=== PATIENT | male | born 1965 | race Caucasian/White ===

== ENCOUNTER 2016-11-08 10:52 | Inpatient (IN) | payer BC, OTHER ==
[~2016-11-08] VITALS: Ht 182.9 cm; Wt 81.6 kg
[2016-11-08] MEDS ORDERED: LOPERAMIDE HCL 2 MG CAPSULE PO PRN ×2 (14:30)
[2016-11-08] MEDS ORDERED: MIRALAX 17 GM POWD.PACK PO PRN (14:30)
[2016-11-08] MEDS ORDERED: MAGNESIUM HYDROXIDE 30 ML LIQUID UDC PO PRN (14:30)
[2016-11-08] MEDS ORDERED: MAG HYDROX/AL HYDROX/SIMETH 30 ML LIQUID UDC PO PRN (14:30)
[2016-11-08] MEDS ORDERED: LORAZEPAM 2 MG/1 ML VIAL IM PRN (14:30)
[2016-11-08] MEDS ORDERED: THIAMINE HCL 200 MG/2 ML VIAL IM ONE ×2 (14:30→17:45)
[2016-11-08] MEDS ORDERED: LORAZEPAM 1 MG TABLET PO PRN ×2 (14:30)
[2016-11-08] MEDS ORDERED: PANTOPRAZOLE SODIUM 40 MG VIAL IV SCH (14:30)
[2016-11-08] MEDS ORDERED: ONDANSETRON 4 MG/2 ML VIAL IV PRN (14:30)
[2016-11-08] MEDS ORDERED: OMEP20TA20 PO (15:00)
--- NOTE | 2016-11-08 15:00 | NUR ---
PRE-ASSESSMENT: PRE-ASSESSMENT DONE IN INTAKE BP 121/90 P 101 T 98.1 R 17 100%. HE DENIES ALLERGIES. HE DENIES SEIZURES. HE STATES HE IS HERE FOR ETOH. NO MEDICATIONS BROUGHT WITH HIM. HE REPORTS HE TAKES PRILOSEC 20 MG QDAY. HE IS A/O X 4. HE IS AMBULATORY.
[2016-11-08 15:07] VITALS: BP 121/90
--- NOTE | 2016-11-08 15:45 | NUR ---
ADMISSION NOTE VS: BP: 121/90 HR: 101 T: 98.1 RR: 17 O2SAT: 100% HEIGHT 6 FOOT WEIGHT 180 LBS ALLERGIES: NKHoda Pt is a 51 year old male admitted to [facility] on 11/08/16 at 1500. Pt is under the care of Dr. Plata for ETOH AND benzo dependence. Pt denies suicidal and homicidal ideations at this time. Patient states he was in a hospital for a 5150 13 days ago. MRSA swab collected and sent to lab. Pt denies chest pain or SOB. Upon assessment, pt skin is intact. CIWA 14 upon admission. NKA. AOx4 and able to answer necessary questions for admission process. Pt is full code. VS WNL. Regular diet. Pt denies having seizures. Pt denies PCP. Breathing is even and unlabored. Oxygen is 100% on room air. Pt ambulates with steady gait. Pt states bowel habits are normal. Pt reports treatment hx in [facility] and [facility]. Pt reports living at home alone. Pt denies past medical hx. Pt refuses PNA vaccine. Patient states he smokes only when he drinks etoh. Dr Plata assessed patient. All needs have been met. pt has been oriented to room, unit, and staff. All safety measures in place per hospital policy. Will continue to monitor. Substance abuse: ETOH: "1 gallon" per day for 13 days. Last use 11/08/16 "about 1/2 pint" Xanax: "0.5 mg" per day for 13 days. Last used 11/08/16 "0/5 mg"
[2016-11-08] MEDS: HYDROXYZINE PAMOATE 25 MG CAPSULE PO PRN (16:36)
--- NOTE | 2016-11-08 16:36 | NUR ---
PRN MEDS PRN vistaril given for c/o anxiety. ciwa 14. pt restless and anxious. will reassess
[2016-11-08 16:40] LABS: BASOPHILS % (AUTO) 0.8 % (0.0-2.0); EOSINOPHILS # (AUTO) 0.2 K/uL (0.0-0.7); EOSINOPHILS % (AUTO) 4.6 % (0.0-7.0); HEMATOCRIT 42.5 % (36.7-47.1); HEMOGLOBIN 14.6 g/dL (12.5-16.3); LYMPHOCYTES # (AUTO) 1.7 K/uL (20.0-40.0); LYMPHOCYTES % (AUTO) 40.4 % (20.5-51.5); MEAN CORPUSCULAR HGB CONC 34 g/dL (32.5-36.3); MEAN CORPUSCULAR VOLUME 87.3 fL (73.0-96.2); MONOCYTES # (AUTO) 0.3 K/uL (2.0-10.0); MONOCYTES % (AUTO) 7.8 % (0.0-11.0); NEUTROPHILS # (AUTO) 1.9 K/uL (1.8-8.9); NEUTROPHILS % (AUTO) 46.4 % (38.5-71.5); PLATELET COUNT (AUTO) 289 K/uL (152-348); RED BLOOD CELL COUNT(AUTO) 4.86 MIL/uL (4.06-5.63); RED CELL DISTRIBUTION WIDTH 13.9 % (12.1-16.2); WHITE BLOOD COUNT (AUTO) 4.1 K/uL (3.6-10.2)
[2016-11-08 17:04] LABS: ALBUMIN 3.8 g/dL (3.4-5.0); BILIRUBIN,TOTAL 0.3 mg/dL (0.2-1.0); CALCIUM 8.1 mg/dL (8.5-10.1); MAGNESIUM 1.8 mg/dL (1.8-2.4); POTASSIUM 3.4 mmol/L (3.5-5.1); TOTAL PROTEIN, SERUM 7.2 g/dL (6.4-8.2)
[2016-11-08 17:05] LABS: THYROID STIMULATING HORMONE 2.008 mIU/mL (0.358-3.740)
[2016-11-08 17:15] LABS: *AMPHETAMINE, URINE NEGATIVE (NEGATIVE); *BARBITURATE, URINE NEGATIVE (NEGATIVE); *CANNABINOID, URINE NEGATIVE (NEGATIVE); *COCCAINE, URINE POSITIVE (NEGATIVE); *OPIATE, URINE NEGATIVE (NEGATIVE); *PHENCYCLIDINE SCREEN,URINE NEGATIVE (NEGATIVE)
--- NOTE | 2016-11-08 17:19 | NUR ---
PRN REASSESSMENT Pt appears less anxious. reports he is feeling a little better. Will continue to monitor
[2016-11-08 17:20] LABS: HIV-1 p24 ANTIGEN NON REACTIVE (NONREACTIVE); HIV-1/2 ANTIBODY NON REACTIVE (NONREACTIVE)
[2016-11-08] MEDS ORDERED: POTASSIUM CHLORIDE 10 MEQ CAPSULE.SA PO ONE (18:00)
[2016-11-08] MEDS: IV NS 1000 ML 1,000 ML IV PRN (18:45)
--- NOTE | 2016-11-08 18:55 | NUR ---
END OF SHIFT Admitted pt this afternoon. Pt admitted for ETOH and Benzo dependence. Pt denies S/I and H/I. Pt denies hx of seizures. Pt given PRN Vistaril for anxiety. Pt has right AC 22 g with NS infusing at 125ml/hr. Pt currently sleeping in bed with RR even and unlabored. Bed locked and in lowest position. Will endorse to night nurse.
[2016-11-08 20:00] VITALS: BP 150/100
--- NOTE | 2016-11-08 20:00 | NUR ---
START OF SHIFT NOTE RECEIVED REPORT BY DAY SHIFT NURSE. PATIENT IS A 51 YEAR OLD MALE, NEWLY ADMITTED FOR ETOH DEPENDENCE. PATIENT WAS PLACED ON 5 DAY ATIVAN TAPER TO BE STARTED TOMORROW. PATIENT IS FULL CODE, REGULAR DIET AND NO KNOWN ALLERGY. PATIENT HAS NO PAST MEDICAL HISTORY. PATIENT DRINKS "1 GALLON" DAILY FOR 13 DAYS AND XANAX PO "0.5 MG " FOR 13 DAYS. ON FALL/SEIZURE PRECAUTION. SKIN INTACT.PATIENT IS ON IV NS @125 ML/HR ON RIGHT AC 22 G. POTASSIUM WAS REPLACED. PATIENT WAS GIVEN PRN VISTARIL GIVEN. LAST CIWA 14. RECEIVED PATIENT IN ROOM. IV INFUSING , NO INFILTRATE. PATIENT REPORTS SWEATING, FLUSHED, ABDOMINAL CRAMPING, ANXIETY AND HEADACHE 02/18. PATIENT STATES HE WATS TO GO SMOKE FIRST AND WANTS TO HAVE SLEEP AID. SAFETY MEASURES IN PLACE. CALL LIGHT IN REACH. WILL CONTINUE TO MONITOR.
[2016-11-08] MEDS: diphenhydrAMINE 50 MG CAPSULE PO PRN (20:38)
--- NOTE | 2016-11-08 20:38 | NUR ---
PRN ATIVAN AND BENADRYL ADMINISTRATION PATIENT ANXIOUS, RESTLESS, AGITATED, UNABLE TO SLEEP. CIWA 16 . PRN ATIVAN AND BENADRYL GIVEN. WILL MONITOR FOR EFFECTIVENESS
--- NOTE | 2016-11-08 21:38 | NUR ---
PRN ATIVAN RE-ASSESSMENT PATIENT IN BED, CALM . PATIENT STATES ATIVAN IS HELPFUL.HE STATES HIS ANXIETY SUBSIDED, CIWA IA NOW 5. WILL CONTINUE TO MONITOR.
--- NOTE | 2016-11-08 22:00 | NUR ---
PRN BENADRYL RE-ASSESSMENT PATIENT IN BED ASLEEP. RESPIRATION EVEN AND UNLABORED. NO S/S OF DISTRESS. IV SODIUM CHLORIDE 0.9 % INFUSING AT 125 MLS/HR ON RIGHT AC, NO S/S OF INFILTRATE. SAFETY MEASURES IN PLACE. CALL LIGHT IN REACH. WILL CONTINUE TO MONITOR
[2016-11-09] VITALS: BP 132/88
[2016-11-09] MEDS: IV NS 1000 ML 1,000 ML IV PRN (03:55)
[2016-11-09 04:00] VITALS: BP 148/89
[2016-11-09] MEDS: PANTOPRAZOLE SODIUM 40 MG TABLET.DR PO SCH (06:24)
--- NOTE | 2016-11-09 07:20 | NUR ---
END OF SHIFT NOTE MONITORED PATIENT THROUGHOUT THE NIGHT. PATIENT ON IV SODIUM CHLORIDE 0.9% AT 125 MLS/HR ON RIGHT AC, 22G. INFUSING , NO INFILTRATE. PATIENT REPORTED SWEATING, FLUSHED, ABDOMINAL CRAMPING, ANXIETY AND HEADACHE 8/10 DURING SHIFT. PATIENT WAS GIVEN PRN ATIVAN AT 2038 FOR CIWA 16 , EFFECTIVE CIWA DOWN NO 5 AND BENADRYL FOR SLEEP AT 2038 , EFFECTIVE. PATIENT COMPLIANT WITH MEDICATIONS. ENCOURAGE FLUIDS. SAFETY MEASURES IN PLACE. CALL LIGHT IN REACH. WILL CONTINUE TO MONITOR. SLEPT 9 HOURS. FLUID INTAKE 1,150 ML. VOIDED X 1 . NO BM. LAST CIWA 2.
--- NOTE | 2016-11-09 07:54 | NUR ---
START OF SHIFT NOTE Received pt this am AOx4. Pt states he is very anxious, shakey, dizzy, and congested. PRN Ativan and Benadryl was administered with effectiveness per night nurse. Last CIWA 2 per night nurse. Pt slept 9 hours. Pt has right AC 22 gauge IV with NS running @ 125 ml/hr. Encouraged increase in fluids to facilitate his detox. Will provide safe and supportive environment. Will continue to monitor.
[2016-11-09 08:00] VITALS: BP 150/94
[2016-11-09] MEDS: THIAMINE HCL 100 MG TABLET PO SCH (08:17)
[2016-11-09] MEDS: LORAZEPAM 1 MG TABLET PO SCH ×4 (08:17→20:40)
[2016-11-09] MEDS: FOLIC ACID 1 MG TABLET PO SCH (08:17)
[2016-11-09] MEDS: MULTIVITAMINS,THERAPEUTIC TABLET PO SCH (08:17)
[2016-11-09 08:31] LABS: ALBUMIN 3.2 g/dL (3.4-5.0); BILIRUBIN,DIRECT 0.1 mg/dL (0.0-0.2); BILIRUBIN,TOTAL 0.4 mg/dL (0.2-1.0); CALCIUM 8.5 mg/dL (8.5-10.1); CREATININE 1.1 mg/dL (0.6-1.3); MAGNESIUM 1.6 mg/dL (1.8-2.4); PHOSPHOROUS 3.4 mg/dL (2.5-4.9); POTASSIUM 4.1 mmol/L (3.5-5.1); TOTAL PROTEIN, SERUM 6.3 g/dL (6.4-8.2)
[2016-11-09] MEDS ORDERED: TUBERCULIN,PURIF.PROT.DERIV. 5 TU/0.1 ML TEST ID ONE (09:00)
[2016-11-09] MEDS ORDERED: MAGNESIUM OXIDE 400 MG TABLET PO ONE (10:00)
[2016-11-09] MEDS ORDERED: LORAZEPAM 1 MG TABLET PO ONE (11:00)
[2016-11-09 12:00] VITALS: BP 147/98
[2016-11-09] MEDS: IV D5 1/2 NS 1000 ML 1,000 ML IV SCH ×2 (15:36→23:24)
[2016-11-09 16:00] VITALS: BP 161/80
--- NOTE | 2016-11-09 18:36 | NUR ---
END OF SHIFT NOTE Pt on 5 day Ativan taper and tolerating well. No PRNs needed during shift. One time order of Ativan ordered around 1100 for anxiety and tremors. Last CIWA 6. Pt stayed in room all shift and tried to sleep most of the day. Pt has right AC 22 g with D 5 1/2 NS infusing @ 125 ml/hr. Pt tolerating food and liquids well. Pt currently sleeping in bed with RR even and unlabored. Bed locked and in lowest position and call dey within reach. Will pass report to night nurse.
[2016-11-09 20:00] VITALS: BP 154/95
--- NOTE | 2016-11-09 20:00 | NUR ---
START OF SHIFT NOTE RECEIVED PATIENT IN ROOM. RESTING. PATIENT ALERT AND ORIENTED X 3. PATIENT IS ON IV D51/2 NS @125ML/HR AT RIGHT AC 22G. SKIN INTACT. NO INFILTRATE. PATIENT REPORTS SWEATING, NOTED TREMORS, NO N/V, SLIGHT ABDOMINAL CRAMPING, RESTLESS LEGS AND GENERALIZED BODY ACHE 5/10. PATIENT ON 1ST DAY OF HIS 5 DAY ATIVAN TAPER FOR ETOH DEPENDENCE, TOLERATED WELL, NO ADVERSE EFFECT . ON FALL/SEIZURE PRECAUTION. PATIENT DID NOT RECEIVE ANY PRN MEDICATION DURING THE DAY. LAST CIWA 6 . SAFETY MEASURES IN PLACE. CALL LIGHT IN REACH. WILL CONTINUE TO MONITOR.
[2016-11-09] MEDS: diphenhydrAMINE 50 MG CAPSULE PO PRN (20:40)
[2016-11-09] MEDS: IBUPROFEN 400 MG TABLET PO PRN (20:41)
--- NOTE | 2016-11-09 20:41 | NUR ---
PRN BENADRYL/MOTRIN ADMINISTRATION PATIENT REPORTS GENERALIZED BODY ACHES 5/10 AND REQUESTS FOR SLEEP AID. PRN BENADRYL AND MOTRIN GIVEN. WILL MONITOR FOR EFFECTIVENESS
--- NOTE | 2016-11-09 21:41 | NUR ---
PRN MOTRIN/BENADRYL RE-ASSESSMENT PATIENT IN BED, ASLEEP. RESPIRATION EVEN AND UNLABORED. NO S/S OF DISTRESS. SAFETY MEASURES IN PLACE. CALL LIGHT IN REACH. WILL CONTINUE TO MONITOR. WILL CONTINUE TO MONITOR.
[2016-11-10] VITALS (8 sets, daily range): BP systolic 141–182; BP diastolic 88–117
[2016-11-10] MEDS: CLONIDINE HCL 0.1 MG TABLET PO PRN ×3 (03:49→22:51)
--- NOTE | 2016-11-10 03:49 | NUR ---
PRN CLONIDINE ADMINISTRATION PATIENT'S BLOOD PRESSURE 148/102 , C/O SWEATING AND CHILLS. PRN CLONIDINE GIVEN. WILL MONITOR FOR EFFECTIVENESS
--- NOTE | 2016-11-10 04:49 | NUR ---
PRN CLONIDINE RE-ASSESSMENT PATIENT 'S BLOOD PRESSURE RECHECK. 141/94. PATIENT STATES CLONIDINE IS HELPFUL . CHILLS SUBSIDED. WILL CONTINUE TO MONITOR.
[2016-11-10] MEDS: PANTOPRAZOLE SODIUM 40 MG TABLET.DR PO SCH (06:20)
[2016-11-10] MEDS: IV D5 1/2 NS 1000 ML 1,000 ML IV SCH (06:30)
--- NOTE | 2016-11-10 07:13 | NUR ---
END OF SHIFT NOTE MONITORED PATIENT THROUGHOUT THE SHIFT. PATIENT ALERT AND ORIENTED X 3. PATIENT IS ON IV D51/2 NS @125ML/HR AT RIGHT AC 22G. SKIN INTACT. NO INFILTRATE. PATIENT REPORTED SWEATING, NOTED TREMORS, NO N/V, SLIGHT ABDOMINAL CRAMPING, RESTLESS LEGS AND GENERALIZED BODY ACHE 5/10 DURING SHIFT. PATIENT ON 1ST DAY OF HIS 5 DAY ATIVAN TAPER FOR ETOH DEPENDENCE, TOLERATED WELL, NO ADVERSE EFFECT . ON FALL/SEIZURE PRECAUTION. PATIENT WAS GIVEN BENADRYL AND MOTRIN AT 2040, EFFECTIVE. PATIENT C/O CHILLS AND SWEATING AT 0349, BP 148/102 , PRN CLONIDINE WAS GIVEN AND EFFECTIVE BP-141/94 . SAFETY MEASURES IN PLACE. CALL LIGHT IN REACH. WILL CONTINUE TO MONITOR. SLEPT 7 HOURS. FLUID INTAKE 1,520 ML. VOIDED X 1. BM X 1 .LAST CIWA 3
--- NOTE | 2016-11-10 08:05 | NUR ---
START OF SHIFT: RECEIVED PT A/O X 4. GROSS TREMORS NOTED TO HANDS. HE REPORTS DIZZINESS AND STATES HE FEELS WEAK. HE REPORTS ANXIETY ,RESTLESSNESS, NAUSEA AND SWEATS. INSTRUCTED PT TO DANGLE LEGS AND SIT ON EDGE OF BED FOR A COUPLE OF MINUTES BEFORE GETTING OUT OF BED. HE REPORTS HE HAS BEEN DRINKING FLUIDS AND EATING 50 % OF MEALS. IV TO R AC WITH NO REDNESS OR SWELLING NOTED. D 5 07/12 NS @125 ML/HR IS EMPTY.DISCONTINUED IV PE . ENCOURAGED INCREASED FLUIDS PO. ATIVAN TAPER IN PROGRESS TO MANAGE S/S OF W/D. CIWA 13. PRN ZOFRAN SL GIVEN FOR NAUSEA.HE DENIES HALLUCINATIONS.PT IS ON BEDREST TODAY. WILL MONITOR FLUID AND FOOD INTAKE. WILL CONTINUE TO PROVIDE SAFE AND SUPPORTIVE ENVIRONMENT.
[2016-11-10] MEDS: FOLIC ACID 1 MG TABLET PO SCH (08:09)
[2016-11-10] MEDS: THIAMINE HCL 100 MG TABLET PO SCH (08:14)
[2016-11-10] MEDS: ONDANSETRON ODT 4 MG TAB.RAPDIS SL PRN ×3 (08:14→22:51)
[2016-11-10] MEDS: MULTIVITAMINS,THERAPEUTIC TABLET PO SCH (08:14)
--- NOTE | 2016-11-10 08:40 | NUR ---
PRN ZOFRAN EFFECTIVE. PT DENIES NAUSEA.
[2016-11-10] MEDS ORDERED: LORAZEPAM 1 MG TABLET PO SCH (09:00)
[2016-11-10] MEDS ORDERED: LORAZEPAM 1 MG TABLET PO ONE (11:00)
--- NOTE | 2016-11-10 11:03 | NUR ---
A ONE TIME DOSE OF ATIVAN 2MG PO GIVEN FOR SEVERE S/S OF W/D PER MD WHICH INCLUDE SEVERE TREMORS, SEVERE ANXIETY AND PT STATES " I FEEL LIKE I AM CRAWLING OUT OF MY SKIN" MELVIN 12 AT 11OO. WILL MONITOR EFFECTIVENESS OF PRN.
--- NOTE | 2016-11-10 11:33 | NUR ---
ONE TIME ATIVAN WAS EFFECTIVE PT'S CIWA 10 AT 1130. WILL CONTINUE TO MONITOR.
[2016-11-10] MEDS ORDERED: LORAZEPAM 1 MG TABLET PO PRN (12:15)
--- NOTE | 2016-11-10 12:25 | NUR ---
ATIVAN TAPER MODIFIED PER MD TO PREVENT SEIZURES FROM W/D. BP ELEVATED AT 182/117 P 78. CLONIDINE PRN GIVEN. WILL MONITOR EFFECTIVENESS.
[2016-11-10] MEDS: LORAZEPAM 1 MG TABLET PO SCH ×3 (12:27→21:00)
--- NOTE | 2016-11-10 13:05 | NUR ---
CLONIDINE WAS EFFECTIVE. BP 148/97 P 62
[2016-11-10] MEDS ORDERED: hydrALAZINE HCL 25 MG TABLET PO PRN (14:30)
[2016-11-10 15:09] LABS: HCV AB <0.1 s/co ratio (0.0-0.9); HEPATITIS B CORE AB, IgM Negative (Negative); HEPATITIS B SURFACE AG Negative (Negative)
--- NOTE | 2016-11-10 15:10 | NUR ---
Therapist encouraged client to attend groups.
[2016-11-10] MEDS: GABAPENTIN 300 MG CAPSULE PO SCH ×2 (15:34→21:00)
[2016-11-10] MEDS: LORAZEPAM 1 MG TABLET PO PRN (15:39)
--- NOTE | 2016-11-10 15:40 | NUR ---
PRN ATIVAN 2 MG PO GIVEN FOR CIWA 19 AT 1535 . S/S OF W/D INCLUDE SWEATS,GROSS TREMORS, SEVERE ANXIETY,ITCHING AND SENSITIVITY TO SOUND AND LIGHT. WILL MONITOR EFFECTIVENESS OF PRN MED IN 30 MINUTES. Addendum: 11/10/16 at 1554 by LIV PAGE RN MADE AWARE.
--- NOTE | 2016-11-10 16:05 | NUR ---
PRN ATIVAN WAS EFFECTIVE AEB CIWA 16.
--- NOTE | 2016-11-10 16:20 | NUR ---
PT C/O NAUSEA WITH NO VOMITING. ZOFRAN SL GIVEN. WILL MONITOR EFFECTIVENESS.
[2016-11-10] MEDS: DICYCLOMINE HCL 20 MG TABLET PO PRN (17:37)
--- NOTE | 2016-11-10 17:40 | NUR ---
PRN BENTYL GIVEN FOR REPORTED STOMACH CRAMPS. WILL MONITOR EFFECTIVENESS.
--- NOTE | 2016-11-10 18:10 | NUR ---
PT STATES BENTYL WAS EFFECTIVE AND STOMAC CRAMPS ARE GONE.
--- NOTE | 2016-11-10 19:04 | NUR ---
END OF SHIFT: PT CONTINUES ON ATIVAN TAPER AND PRN ATIVAN IS AVAILABLE WITH CIWA PARAMETERS. HIS LAST CIWA 16. PRN ATIVAN GIVEN X 2 WITH A ONE TIME DOSE WELL AND MILDLY EFFECTIVE. CLONIDINE PRN GIVEN FOR ELEVATED BP AND EFFECTIVE. ZOFRAN SL GIVEN PRN X 2 AND EFFECTIVE. BENTYL GIVEN FOR STOMACH CRAMPS AND EFFECTIVE. SALINE LOCK IN PLACE TO R AC NO REDNESS OR SWELLING NOTED. PT WAS EXTREMELY TREMULOUS,SWEATING AND C/O ANXIETY AND NAUSEA EARLIER. NEW ORDER TO EXTEND PRN ATIVAN PER MD TO PREVENT SEIZURES AND DTS. PT IS EATING 50% OF MEALS AND CONSUMED APPROXIMATELY 4,446 ML OF WATER AND POWER LANCE. HE WAS INSTRUCTED TO DANGLE FEET AT EDGE OF BED BEFORE GETTING OUT OF BED AND USING A W/C TO MOVE ABOUT UNIT. BED REST SUGGESTED. WILL PASS SHIFT REPORT TO ONCOMING NIGHT NURSE.
--- NOTE | 2016-11-10 19:15 | NUR ---
START OF SHIFT Received 51 year old male patient admitted on 11/08/16 for ETOH dependency. Pt is full code with NKA. He denies any PMHx. He reports using ETOH "1 gallon" for 13 days. Last dose was 1/2 pint on 11/08/16. Xanax PO 0.5 mg daily for 13 days. Last dose was 0.5 mg on 11/08/16. He is placed on a 5 day Ativan taper and tolerating well. Pt with 22 gauge saline lock on right AC. Patent and flushing well. Per endorsement pt received one time Ativan and Zofran x2. Pt is alert and oriented x4, breathing is even and unlabored. Pt safe with bed locked in lowest position, side rails up x2 and call light within reach. Will continue to monitor.
[2016-11-10] MEDS: diphenhydrAMINE 50 MG CAPSULE PO PRN (21:00)
--- NOTE | 2016-11-10 21:00 | NUR ---
PRN BENADRYL Pt complains of inability to fall asleep. PRN Benadryl administered as ordered. Breathing is even and unlabored. Safety measures in place. Will monitor effectiveness of medication.
--- NOTE | 2016-11-10 22:00 | NUR ---
PRN BENADRYL REASSESSMENT PRN Benadryl ineffective. Pt still awake and unable to sleep. Breathing even and unlabored, safety measures in place. Will continue to monitor.
[2016-11-10] MEDS: HYDROXYZINE PAMOATE 25 MG CAPSULE PO PRN (22:51)
--- NOTE | 2016-11-10 22:51 | NUR ---
PRN ZOFRAN, CLONIDINE, and VISTARIL Pt observed with chills/sweats, anxiety, agitation and nausea. PRN Zofran, Clonidine and Vistaril administered as ordered. Breathing is even and unlabored, safety measures in place. Will monitor effectiveness of medications.
--- NOTE | 2016-11-10 23:51 | NUR ---
PRN ZOFRAN/CLONIDINE and VISTARIL REASSESSMENT PRN medications effective. Pt lying in bed with eyes closed and is asleep. Respirations 16, breathing is even and unlabored. No s/s of facial grimacing noted. Safety measures in place. Will continue to monitor.
[2016-11-11] VITALS (8 sets, daily range): BP systolic 138–163; BP diastolic 87–109
--- NOTE | 2016-11-11 | NUR ---
CIWA DEFERRED CIWA deferred d/t order is Q4H while awake. Pt lying in bed with eyes closed noted to be asleep. Respirations 16, breathing is even and unlabored. Safety measures in place. Will monitor.
[2016-11-11] MEDS: PANTOPRAZOLE SODIUM 40 MG TABLET.DR PO SCH (06:22)
[2016-11-11] MEDS: IBUPROFEN 400 MG TABLET PO PRN (06:22)
[2016-11-11] MEDS: HYDROXYZINE PAMOATE 25 MG CAPSULE PO PRN (06:22)
--- NOTE | 2016-11-11 06:32 | NUR ---
PRN MOTRIN/VISTARIL Pt complains of headache 6/10 and anxiety. PRN Motrin and Vistaril administered as ordered. Will endorse to oncoming shift to monitor effectiveness of medications.
--- NOTE | 2016-11-11 07:17 | NUR ---
END OF SHIFT Pt is a 51 year old male patient admitted on 11/08/16 for ETOH dependency. Pt is full code with NKA. He denies any PMHx. He continues on a 5 day Ativan taper and is tolerating well. Pt with 22 gauge saline lock on right AC. Patent and flushing well. At 2100 he received PRN Benadryl, medication was not effective. At 2251 he received PRN Vistaril, Jose Luis and Clonidine. PRN medications were effective. At 0630 he received PRN Vistaril and Motrin d/t complaints of headache and anxiety. Will endorse to oncoming nurse to monitor effectiveness. He slept a total of 5 hrs, Intake ,1000mL, Void: x5, BM:0. CIWA:9. Pt is alert and oriented x4, breathing is even and unlabored. Pt safe with bed locked in lowest position, side rails up x2 and call light within reach. Endorsed to oncoming nurse.
[2016-11-11 07:51] LABS: BASOPHILS % (AUTO) 0.4 % (0.0-2.0); EOSINOPHILS # (AUTO) 0.2 K/uL (0.0-0.7); EOSINOPHILS % (AUTO) 4.8 % (0.0-7.0); HEMATOCRIT 37.3 % (36.7-47.1); HEMOGLOBIN 12.7 g/dL (12.5-16.3); LYMPHOCYTES # (AUTO) 0.9 K/uL (20.0-40.0); LYMPHOCYTES % (AUTO) 19.2 % (20.5-51.5); MEAN CORPUSCULAR HEMOGLOBIN 29.5 uug (23.8-33.4); MEAN CORPUSCULAR HGB CONC 34 g/dL (32.5-36.3); MEAN CORPUSCULAR VOLUME 86.9 fL (73.0-96.2); MONOCYTES # (AUTO) 0.3 K/uL (2.0-10.0); MONOCYTES % (AUTO) 5.6 % (0.0-11.0); NEUTROPHILS # (AUTO) 3.3 K/uL (1.8-8.9); PLATELET COUNT (AUTO) 217 K/uL (152-348); RED CELL DISTRIBUTION WIDTH 14.6 % (12.1-16.2); WHITE BLOOD COUNT (AUTO) 4.7 K/uL (3.6-10.2)
--- NOTE | 2016-11-11 08:15 | NUR ---
START OF SHIFT: RECEIVED PT A/O X 3 LAYING IN BED IN SEMI FOWLERS. HE REPORTS HE COULDN'T SLEEP LAST NIGHT AND HAD A VERY RESTLESS NIGHT WITH SWEATS,ANXIETY AND RESTLESSNESS. HE IS TREMULOUS BUT HIS AFFECT IS BRIGHTER AND HE IS LESS FLUSHED THEN YESTERDAY. ATIVAN TAPER IN PROGRESS. CIWA 11. HE REPORTS ANXIETY AND FEELS HOT AND COLD. HE STATES HE SHOWERED AND PUT ON CLEAN CLOTHES AT 0230 MEDICATED ORDERED . PT IS COMPLIANT WITH INCREASED FLUIDS. HIS GAIT IS STEADY AND HE DENIES LIGHT HEADEDNESS OR DIZZINESS. WILL CONTINUE TO MONITOR AND PROVIDE SAFE AND SUPPORTIVE ENVIRONMENT.
[2016-11-11] MEDS: LORAZEPAM 1 MG TABLET PO SCH ×3 (08:28→20:20)
[2016-11-11] MEDS: FOLIC ACID 1 MG TABLET PO SCH (08:28)
[2016-11-11] MEDS: MULTIVITAMINS,THERAPEUTIC TABLET PO SCH (08:28)
[2016-11-11] MEDS: THIAMINE HCL 100 MG TABLET PO SCH (08:28)
[2016-11-11] MEDS: GABAPENTIN 300 MG CAPSULE PO SCH ×2 (08:28→15:01)
[2016-11-11] MEDS ORDERED: LORAZEPAM 1 MG TABLET PO SCH (09:00)
[2016-11-11 10:59] LABS: ALBUMIN 3.2 g/dL (3.4-5.0); BILIRUBIN,DIRECT 0.1 mg/dL (0.0-0.2); BILIRUBIN,TOTAL 0.5 mg/dL (0.2-1.0); CALCIUM 8.5 mg/dL (8.5-10.1); MAGNESIUM 1.7 mg/dL (1.8-2.4); PHOSPHOROUS 3.8 mg/dL (2.5-4.9); TOTAL PROTEIN, SERUM 6.3 g/dL (6.4-8.2)
[2016-11-11] MEDS: LORAZEPAM 1 MG TABLET PO PRN (11:24)
--- NOTE | 2016-11-11 11:25 | NUR ---
PRN ATIVAN 2 MG PO GIVEN FOR S/S OF W/D WHICH INCLUDE SEVERE,ANXIETY AND GROSS TREMORS AND SOME AGITATION. CIWA 17 WILL MONITOR EFFECTIVENESS OF MED.
[2016-11-11] MEDS: ACETAMINOPHEN 325 MG TABLET PO PRN (16:55)
[2016-11-11] MEDS: CLONIDINE HCL 0.1 MG TABLET PO PRN (16:56)
--- NOTE | 2016-11-11 16:59 | NUR ---
PRN TYLENOL,CLONIDINE AND VISTARIL ADMINISTERED FOR BP163/109 P 94, H/A5/10 ON PAIN SCALE AND ANXIETY. WILL MONITOR EFFECTIVENESS.
--- NOTE | 2016-11-11 17:35 | NUR ---
END OF SHIFT: PT REMAINS ON ATIVAN TAPER. LAST CIWA 8. HE CONTINUES TO BE TREMULOUS AND C/O ANXIETY INTERMITTENTLY. PT IS EATING 100% OF MEALS AND STATES HE HAS HIS APPETITE BACK. PRN ATIVAN GIVEN THIS AM FOR CIWA 17 AND EFFECTIVE AEB CIWA 11. HIS GAIT IS STEADY AND HE IS ATTENDING GROUPS AND ACTIVITIES. BP BECAME ELEVATED IN AFTERNOON AND HE C/O H/A AND ANXIETY. TYLENOL,CLONIDINE AND VISTARIL GIVEN AND EFFECTIVE. [facility]
--- NOTE | 2016-11-11 19:15 | NUR ---
START OF SHIFT Received 51 year old male patient admitted on 11/08/16 for ETOH dependency. Pt is full code with NKA. He denies any PMHx. He reports using ETOH "1 gallon" for 13 days. Last dose was 1/2 pint on 11/08/16. Xanax PO 0.5 mg daily for 13 days. Last dose was 0.5 mg on 11/08/16. He is placed on a 5 day Ativan taper and tolerating well. Pt noted with 22 gauge saline lock on right AC and is patent. Per endorsement, pt received PRN Clonidine and Vistaril. Pt is alert and oriented x4, breathing is even and unlabored. Pt safe with bed locked in lowest position, side rails up x2 and call light within reach. Will continue to monitor.
[2016-11-11] MEDS: DICYCLOMINE HCL 20 MG TABLET PO PRN (20:19)
--- NOTE | 2016-11-11 20:19 | NUR ---
PRN BENTYL Pt complains of abdominal cramps 12/19. PRN Bentyl administered as ordered. Breathing even and unlabored, safety measures in place. Will monitor effectiveness.
[2016-11-11] MEDS: CARVEDILOL 6.25 MG TABLET PO SCH (20:20)
--- NOTE | 2016-11-11 20:20 | NUR ---
NURSING NOTE Pt noted with increased BP:159/100, HR:101. Denies headache/dizziness. 2100 dose of routine Coreg administered as ordered. Will monitor effectiveness.
[2016-11-11] MEDS ORDERED: MAGNESIUM OXIDE 400 MG TABLET PO ONE (21:00)
[2016-11-11] MEDS ORDERED: GABAPENTIN 300 MG CAPSULE PO SCH (21:00)
--- NOTE | 2016-11-11 21:19 | NUR ---
PRN BENTYL REASSESSMENT PRN medication effective. Pt reports abdominal cramps decreased to 3/10. Breathing even and unlabored, safety measures in place. Will monitor.
--- NOTE | 2016-11-11 21:20 | NUR ---
NURSING NOTE COREG effective. Pt's BP decreased to 138/99, HR: 88, Spo2: 98%. Pt denies headache. Will continue to monitor.
--- NOTE | 2016-11-11 22:37 | NUR ---
IV DC Pt's 22 gauge saline lock on right antecubital DC'd. Minimal bleeding noted, pressure dressing applied. Pt tolerated well. Will continue to monitor.
--- NOTE | 2016-11-11 22:37 | NUR ---
PRN TRAZODONE Pt complains of inability to sleep. PRN Trazodone administered as ordered. Breathing even and unlabored respirations 16, safety measures in place. Will monitor effectiveness.
[2016-11-11] MEDS: TRAZODONE 50 MG TABLET PO PRN (22:38)
--- NOTE | 2016-11-11 23:37 | NUR ---
PRN TRAZODONE REASSESSMENT PRN medication effective. Pt is lying comfortably in bed with eyes closed and is asleep. Respirations 16, breathing is even and unlabored. Pt safe with bed locked in lowest position, side rails up x2 and call light within reach. Will continue to monitor.
[2016-11-12] VITALS: BP 132/88
--- NOTE | 2016-11-12 | NUR ---
CIWA DEFERRED CIWA deferred d/t order is Q4H while awake. Pt lying in bed with eyes closed noted to be asleep. Respirations 16, breathing is even and unlabored. Safety measures in place. Will continue to monitor.
[2016-11-12 04:00] VITALS: BP 140/90
[2016-11-12] MEDS: PANTOPRAZOLE SODIUM 40 MG TABLET.DR PO SCH (06:43)
--- NOTE | 2016-11-12 07:00 | NUR ---
END OF SHIFT Pt is a 51 year old male patient admitted on 11/08/16 for ETOH dependency. Pt is full code with NKA. He denies any PMHx. He is placed on a 5 day Ativan taper and tolerating well. At 2018 he received PRN Bentyl for complaints of abdominal cramps. At 2236 he received PRN Trazodone d/t inability to sleep. PRN medications effective. He slept a total of 7 hrs, Intake: 1400 mL, Void: x2, BM: 0, CIWA:8. Pt is alert and oriented x4, breathing is even and unlabored. Pt safe with bed locked in lowest position, side rails up x2 and call light within reach. Endorsed to oncoming shift.
--- NOTE | 2016-11-12 07:51 | NUR ---
START OF SHIFT Received pt this am AOx4. Pt presents with brighter affect and congruent mood. He states he showered and has been tolerating meals. He states he still feels shakey and anxious. Pt given PRN Trazodone and Bentyl per night nurse. He slept 7 hours. Last CIWA 8 per night nurse. Encouraged pt to attend group and activities. Will provide safe and supportive environment. Will continue to monitor.
[2016-11-12 08:00] VITALS: BP 161/91
[2016-11-12] MEDS: MULTIVITAMINS,THERAPEUTIC TABLET PO SCH (08:27)
[2016-11-12] MEDS: FOLIC ACID 1 MG TABLET PO SCH (08:27)
[2016-11-12] MEDS: LORAZEPAM 1 MG TABLET PO SCH ×4 (08:27→20:36)
[2016-11-12] MEDS: GABAPENTIN 300 MG CAPSULE PO SCH ×4 (08:27→20:36)
[2016-11-12] MEDS: CARVEDILOL 6.25 MG TABLET PO SCH ×2 (08:28→20:37)
[2016-11-12] MEDS: THIAMINE HCL 100 MG TABLET PO SCH (08:28)
[2016-11-12] MEDS ORDERED: LORAZEPAM 1 MG TABLET PO SCH (09:00)
[2016-11-12 12:00] VITALS: BP 175/93
[2016-11-12] MEDS: ACETAMINOPHEN 325 MG TABLET PO PRN (12:20)
--- NOTE | 2016-11-12 12:20 | NUR ---
PRN MEDS PRN Tylenol per pt request for h/a 4/10 on pain scale. Will reassess
[2016-11-12] MEDS: CLONIDINE HCL 0.1 MG TABLET PO PRN (13:02)
--- NOTE | 2016-11-12 13:03 | NUR ---
PRN MEDICATION PRN Clonidine given for BP 175/93. HR stable at 87. Patient also reports feeling anxious. Will reassess
--- NOTE | 2016-11-12 13:03 | NUR ---
PRN REASSESSMENT Pt states headache is now 2/10. Will continue to monitor
--- NOTE | 2016-11-12 13:40 | NUR ---
PRN REASSESSMENT Patient sleeping in bed RR even and unlabored. RR 17. Bed locked and in lowest position with call dey in reach. Will continue to monitor
[2016-11-12] MEDS ORDERED: CARVEDILOL 12.5 MG TABLET PO ONE (15:00)
[2016-11-12 16:00] VITALS: BP 152/96
[2016-11-12] MEDS ORDERED: AMLODIPINE 5 MG TABLET PO ONE (17:00)
--- NOTE | 2016-11-12 18:49 | NUR ---
END OF SHIFT Pt continues on 5 day Ativan taper and tolerating well. Patient given PRN Tylenol for h/a with effectiveness. Pt given PRN Clonidine for elevated BP and anxiety with effectiveness. Pt is still experiencing s/s or w/d but states detox meds are helpful. Last CIWA 9. Pt attended groups today and socialized with peers. All needs have been met. Safety measures in place. Will pass shift report to night nurse.
[2016-11-12 20:00] VITALS: BP 151/92
--- NOTE | 2016-11-12 20:00 | NUR ---
Start of Shift Patient is a 51-year old, male, admitted for ETOH dependency. With reported PMHx of Anxiety and GERD. Pt is Full Fode, on Regular Diet with NKA. Pt on a 5-day Ativan taper, started 11/09/2016, and tolerating well. Pt is AAOx4, with no SOB noted at this time. Noted with anxiety and tremors. Pt is ambulatory with steady gait. No open skin noted. Fall, universal and safety prec in place. Call light within reach. Kept pt warm, dry and comfortable. All needs met. Last CIWA=8. Will continue to monitor pt.
[2016-11-13] VITALS: BP 132/78
[2016-11-13] MEDS: CLONIDINE HCL 0.1 MG TABLET PO PRN ×2 (00:35→06:25)
[2016-11-13] MEDS: ONDANSETRON 4 MG/2 ML VIAL IM PRN ×2 (00:35→17:12)
--- NOTE | 2016-11-13 00:35 | NUR ---
RN note PRN Zofran and Clonidine Pt reported feeling nauseous and with 1 episode of vomiting. Administered Zofran 4 mg IM as ordered. No bleeding noted. Pt c/o feeling anxious and irritable and with tremors observed. Administered Clonidine 0.1 mg PO as ordered. Will monitor and reassess.
--- NOTE | 2016-11-13 01:10 | NUR ---
RN note reassess Pt verbalized relief from nausea and with no episode of vomiting since administration of Zofran. Effective.
[2016-11-13] MEDS: HYDROXYZINE PAMOATE 25 MG CAPSULE PO PRN (03:14)
--- NOTE | 2016-11-13 03:15 | NUR ---
RN note PRN Vistaril Pt c/o feeling "increasingly" anxious. Administered Vistaril 25 mg PO. Will monitor and reassess.
[2016-11-13 04:00] VITALS: BP 140/74
--- NOTE | 2016-11-13 04:20 | NUR ---
RN note reassess Pt verbalized relief from anxiety.
[2016-11-13] MEDS: PANTOPRAZOLE SODIUM 40 MG TABLET.DR PO SCH (06:22)
[2016-11-13] MEDS: ONDANSETRON ODT 4 MG TAB.RAPDIS SL PRN ×2 (06:23→07:23)
--- NOTE | 2016-11-13 06:25 | NUR ---
RN note PRN Clonidine and Zofran Pt c/o feeling anxious and restless, administered Clonidine 0.1 mg PO. XX=402/74. Pt c/o feeling nauseous with no episode of vomiting, administered Zofran 4 mg ODT. Will reassess.
--- NOTE | 2016-11-13 07:17 | NUR ---
RN note reassess Pt verbalized feeling relief from anxiety and restlessness. Pt appears calm on bed. No nausea reported at this time.
--- NOTE | 2016-11-13 07:18 | NUR ---
End of Shift Patient is a 51-year old, male, admitted for ETOH dependency. With reported PMHx of Anxiety and GERD. Pt is Full Fode, on Regular Diet with NKA. Pt on a 5-day Ativan taper, started 11/09/2016, and tolerating well. Pt is AAOx4, with no SOB noted at this time. Noted with anxiety and tremors. Pt is ambulatory with steady gait. No open skin noted. Fall, universal and safety prec in place. Call light within reach. Kept pt warm, dry and comfortable. All needs met. Last CIWA=8, slept for 3 hours. Endorsed to AM shift nurse for continuity of care.
[2016-11-13 08:00] VITALS: BP 135/97
--- NOTE | 2016-11-13 08:00 | NUR ---
START OF SHIFT Pt 51 y/o male admitted for etoh dependence. Pt received in room awake watching television. Pt alert and oriented to name, place, and time. Perrla. Skin warm and slightly moist to touch. Respirations even and unlabored. Bilateral hand tremors noted. Pt appears anxious, with pressured speech noted. Bed on lowest position with side rails x2 up for safety. Call light within reach. No distress noted at this time.
[2016-11-13] MEDS: MULTIVITAMINS,THERAPEUTIC TABLET PO SCH (08:29)
[2016-11-13] MEDS: GABAPENTIN 300 MG CAPSULE PO SCH ×2 (08:31→20:37)
[2016-11-13] MEDS: FOLIC ACID 1 MG TABLET PO SCH (08:31)
[2016-11-13] MEDS: THIAMINE HCL 100 MG TABLET PO SCH (08:31)
[2016-11-13] MEDS: CARVEDILOL 6.25 MG TABLET PO SCH ×2 (08:32→20:37)
[2016-11-13 08:51] LABS: CALCIUM 8.9 mg/dL (8.5-10.1); CREATININE 1.1 mg/dL (0.6-1.3); POTASSIUM 4.3 mmol/L (3.5-5.1)
[2016-11-13 08:52] LABS: MAGNESIUM 1.9 mg/dL (1.8-2.4); PHOSPHOROUS 3.9 mg/dL (2.5-4.9)
[2016-11-13] MEDS ORDERED: LORAZEPAM 1 MG TABLET PO SCH ×3 (09:00→13:00)
[2016-11-13] MEDS ORDERED: AMLODIPINE 5 MG TABLET PO SCH (09:00)
[2016-11-13 12:00] VITALS: BP 135/92
--- NOTE | 2016-11-13 12:00 | NUR ---
NSG ENTRY Pt was seen by Dr. Plata earlier with new orders and modifications made to ativan taper.
--- NOTE | 2016-11-13 15:00 | NUR ---
NSG ENTRY Pt wanted to hold on neurontin 300mg po due at 1500. Pt wanted to attend group first.
--- NOTE | 2016-11-13 15:15 | NUR ---
APRIL MICHELLE: PT STATED HE WAS NAUSEOUS, AND THAT PO TABLETS ARE UN EFFECTIVE. PT STATES HE WOULD LIKE TO EAT DINNER WITHOUT GETTING NAUSEOUS. WILL RE-ASSESS PT Addendum: 11/13/16 at 1745 by MARÍA SADLER RN INCORRECT TIME, MIGUEL ANGEL ADMINISTERED AT 1715
[2016-11-13 16:00] VITALS: BP 135/93
[2016-11-13] MEDS: LORAZEPAM 1 MG TABLET PO SCH ×2 (16:18→20:36)
[2016-11-13] MEDS ORDERED: AMLODIPINE 5 MG TABLET PO ONE (17:00)
--- NOTE | 2016-11-13 17:42 | NUR ---
PRN EVAL Pt denies any nausea and any vomit.
--- NOTE | 2016-11-13 18:49 | NUR ---
END OF SHIFT Pt 51 y/o male admitted for etoh dependence. Pt alert and oriented to name, place, and time. [place]. Skin warm and dry to touch. Respirations even and unlabored. Bilateral hand tremors noted. Pt with periods of anxiety this morning. Pt observed mostly in group activity and patio today. Pt medication compliant and tolerated well. No ASE noted. Pt was seen by Dr. Plata today. Modifications to ativan taper were made( ativan 2mg po @ 1300 added for today , 11/14 - ativan 1 mg PO q6h x 3 doses, 11/15 - ativan 1 mg PO q12h x 2 doses, 11/16 - ativan 1 mg PO qAM 0900 x 1 dose, 11/17 - OFF). Bed on lowest position with side rails x2 up for safety. Call light within reach. No distress noted at this time.
--- NOTE | 2016-11-13 19:15 | NUR ---
Start of Shift Note: Patient is a 51 y/o male admitted on 11/08/16 for ETOH and Benzo dependence. Patient has Anxiety and GERD. No seizure history noted. Patient is on a regular diet with no known food and drug allergies. Full Code status. Patient is on a 5-day Ativan taper and tolerating well. Last CIWA 3. No PRN medications given during day shift. Patient is alert & oriented x4. Patient is ambulatory with a steady gait. No shortness of breath noted. Respiration even & unlabored. Abdomen soft & non-distended. Bowel sounds active in all four quadrants. No complains of nausea noted. Patient complains of mild headache. Bilateral hand tremors noted. Patient denies hallucinations. Safety precautions are in place. Bed locked in lowest position. Both side rails up. Call light within pts reach. Will continue to monitor patient.
[2016-11-13 20:00] VITALS: BP 151/92
[2016-11-13] MEDS: diphenhydrAMINE 50 MG CAPSULE PO PRN (20:36)
[2016-11-13] MEDS: ACETAMINOPHEN 325 MG TABLET PO PRN (20:37)
--- NOTE | 2016-11-13 20:37 | NUR ---
PRN Administration Patient complains of mild headache & requesting for medication to help her sleep. PRN Tylenol & Benadryl given as ordered. Will reassess in 1 hour for effectiveness of medication.
--- NOTE | 2016-11-13 21:37 | NUR ---
PRN Reassessment Pt still awake at this time. Patient verbalized relief from headache. Patient in bed and appears comfortable. No s/s of distress noted. Safety precautions are in place. Will continue to monitor patient.
[2016-11-14] VITALS: BP 133/83
[2016-11-14 04:00] VITALS: BP 112/80
[2016-11-14] MEDS: PANTOPRAZOLE SODIUM 40 MG TABLET.DR PO SCH (06:32)
--- NOTE | 2016-11-14 07:14 | NUR ---
End of Shift Note: Patient is a 51 y/o male admitted on 11/08/16 for ETOH and Benzo dependence. Patient has Anxiety and GERD. No seizure history noted. Patient is on a regular diet with no known food and drug allergies. Full Code status. Patient is on a 5-day Ativan taper and tolerating well. Last CIWA is 5. Pt was given PRN Benadryl & Tylenol during my shift and were effective. Pt remained stable and vitals remains WNL. Pt is compliant with therapeutic plan. Pt slept for a total of 6 hours. Pt consumed 2000ml of fluids. Voided 2x with no bowel movement. All needs attended & met. Safety precautions are in place. Will endorse pt to day shift nurse.
--- NOTE | 2016-11-14 07:54 | NUR ---
START OF SHIFT Received pt this am AOx4. Pt presents with brighter affect and congruent mood. Patient slept 6 hours last night. PRN Benadryl and Tylenol given per night nurse with effectiveness. Last CIWA 5 per night nurse. Will administer morning medications. Pt states he plans on going to groups and activities today. Will provide safe and supportive environment and continue to monitor.
[2016-11-14 08:00] VITALS: BP 130/90
[2016-11-14] MEDS: FOLIC ACID 1 MG TABLET PO SCH (08:41)
[2016-11-14] MEDS: GABAPENTIN 300 MG CAPSULE PO SCH ×3 (08:41→20:57)
[2016-11-14] MEDS: MULTIVITAMINS,THERAPEUTIC TABLET PO SCH (08:41)
[2016-11-14] MEDS: ONDANSETRON 4 MG/2 ML VIAL IM PRN ×2 (08:42→20:59)
[2016-11-14] MEDS: LORAZEPAM 1 MG TABLET PO SCH ×3 (08:42→20:57)
[2016-11-14] MEDS: CARVEDILOL 6.25 MG TABLET PO SCH ×2 (08:42→21:05)
[2016-11-14] MEDS: AMLODIPINE 10 MG TABLET PO SCH (08:42)
[2016-11-14] MEDS: THIAMINE HCL 100 MG TABLET PO SCH (08:42)
--- NOTE | 2016-11-14 08:45 | NUR ---
PRN MEDS PRN Zofran given for c/o nausea. Pt requested IM injection instead of ODT. Pt states he is too nauseated too eat and his stomach is bothering him. Will reassess.
[2016-11-14] MEDS ORDERED: AMLODIPINE 5 MG TABLET PO SCH (09:00)
[2016-11-14] MEDS ORDERED: LORAZEPAM 1 MG TABLET PO SCH (09:00)
--- NOTE | 2016-11-14 09:15 | NUR ---
PRN REASSESSMENT Pt ate 100% of breakfast. He states his stomach feels better and his nausea has ceased. Will continue to monitor.
[2016-11-14] MEDS: CLONIDINE HCL 0.1 MG TABLET PO PRN ×3 (09:56→23:48)
--- NOTE | 2016-11-14 09:58 | NUR ---
PRN MEDS PRN Clonidine given for c/o anxiety. BP 136/88 HR 83. Will reassess
--- NOTE | 2016-11-14 10:35 | NUR ---
PRN REASSESS Pt reports relief from anxiety. Pt appears calm in bed watching tv. Bed locked and in lowest position and call dey in reach
[2016-11-14 12:00] VITALS: BP 127/79
[2016-11-14] MEDS: HYDROXYZINE PAMOATE 25 MG CAPSULE PO PRN ×2 (13:17→20:58)
--- NOTE | 2016-11-14 13:17 | NUR ---
PRN MEDS PRN Vistaril given for c/o anxiety. pt appears anxious and agitated. Will reassess
--- NOTE | 2016-11-14 14:00 | NUR ---
PRN REASSESS Pt presents calmer in bed. Pt states he feels less anxious. Will continue to monitor
[2016-11-14 16:00] VITALS: BP 140/82
--- NOTE | 2016-11-14 16:22 | NUR ---
PRN MEDS PRN clonidine given for c/o anxiety. BP 140/82 HR 85. Will reassess.
--- NOTE | 2016-11-14 17:00 | NUR ---
PRN EFFECTIVENESS Pt reports he is less anxious. pt resting in bed with bed locked and in lowest position and call dey within reach
--- NOTE | 2016-11-14 18:46 | NUR ---
END OF SHIFT Pt continues on Ativan taper and tolerating well. Patient given PRN IM Zofran, Clonidine x2 and Vistaril with effectiveness. Patient c/o anxiety during shift but medications were effective in reducing anxiousness. Patient attended groups and activities today and socialized with peers around unit. Pt presents with brighter affect and congruent mood but still presents with intermittent anxiousness. Last CIWA 6. All needs have been met. Safety measures are in place. Will pass shift report to oncoming nurse.
--- NOTE | 2016-11-14 19:15 | NUR ---
START OF SHIFT Received 51 year old male patient admitted on 11/08/16 for ETOH and Xanax dependency. Pt is full code with NKA. He reports a PMHx of anxiety and GERD. He reports drinking ETOh 1 gallon daily for 13 days. Last dose was 1/2 pint on 11/08/16. He reports taking xanax 0.5 mg daily for 13 days. Last dose was 0.5 mg on 10/12/16. He is currently receiving 5 day Ativan taper and tolerating well. Per endorsement, pt received PRN Zofran, Clonidine and Vistaril. Pt is alert and oriented x4, breathing is even and unlabored, safety measures in place. Will continue to monitor.
[2016-11-14 20:00] VITALS: BP 152/100
--- NOTE | 2016-11-14 20:59 | NUR ---
PRN ZOFRAN IM Pt complains of nausea with no episode of vomiting. Pt observed with facial grimacing. PRN Zofran IM administered as ordered. Respirations 16, breathing even and unlabored, safety measures in place. Will monitor effectiveness.
--- NOTE | 2016-11-14 20:59 | NUR ---
PRN VISTARIL Pt complains of anxiety. Pt observed to be restless in room. PRN Vistaril administered as ordered. Breathing even and unlabored. Will monitor effectiveness.
--- NOTE | 2016-11-14 21:59 | NUR ---
PRN ZOFRAN/VISTARIL REASSESSMENT Pt reports Zofran and Vistaril effective in relieving nausea and anxiety. Pt reports " I feel a lot better". Breathing even and unlabored. Safety measures in place. Will monitor.
[2016-11-14] MEDS: TRAZODONE 50 MG TABLET PO PRN (23:47)
--- NOTE | 2016-11-14 23:47 | NUR ---
PRN CLONIDINE/TRAZODONE Pt complains of anxiety and inability to fall asleep. PRN Clonidine and Trazodone administered as ordered. Breathing is even and unlabored. Will monitor effectiveness.
[2016-11-15] VITALS: BP 117/68
--- NOTE | 2016-11-15 00:47 | NUR ---
PRN CLONIDINE/TRAZODONE REASSESSMENT PRN medications effective. Pt lying comfortably in bed with eyes closed and is asleep. respirations 16. No facial grimacing noted. Breathing is even and unlabored. Safety measures in place. Will monitor.
[2016-11-15 04:00] VITALS: BP 106/58
--- NOTE | 2016-11-15 04:00 | NUR ---
CIWA DEFERRED CIWA deferred d/t pt lying in bed with eyes closed and is asleep. Respirations 16, breathing is even and unlabored. Safety measures in place. Will continue to monitor.
[2016-11-15] MEDS: PANTOPRAZOLE SODIUM 40 MG TABLET.DR PO SCH (06:42)
[2016-11-15] MEDS: HYDROXYZINE PAMOATE 25 MG CAPSULE PO PRN ×3 (06:56→21:12)
--- NOTE | 2016-11-15 06:56 | NUR ---
PRN VISTARIL Pt complains of anxiety. PRN Vistaril administered as ordered. Breathing is even and unlabored,respirations 16. Will endorse to monitor effectiveness.
--- NOTE | 2016-11-15 07:14 | NUR ---
END OF SHIFT Pt is a 51 year old male patient admitted on 11/08/16 for ETOH and Xanax dependency. Pt is full code with NKA. He is currently receiving 5 day Ativan taper and tolerating well. Pt complained of withdrawal symptoms such as nausea, and anxiety and still presents with fine tremors. At 2058 he received PRN Zofran and vistaril. At 7 he received PRN Clonidine and Trazodone. at 0656 he complained of anxiety and received PRN Vistaril. Will endorse to monitor effectiveness. He slept a total of 6 hrs, Intake: 1682 mL, Void: x2, BM: 0, CIWA:5. Pt is alert and oriented x4, breathing is even and unlabored, safety measures in place. Will endorse to oncoming shift.
--- NOTE | 2016-11-15 07:59 | NUR ---
START OF SHIFT Received report from telesales consultant nurse. 51 year old male patient admitted on 11/08/16 for ETOH and Xanax withdrawals. Pt is full code with NKA and follows a regular diet. Medical hx of anxiety and GERD. Reports drinking ETOh 1 gallon daily x13 days. Last drink was 1/2 pint on 11/08/16. Pt reports taking xanax 0.5 mg daily for 13 days. Last dose was 0.5 mg on 10/12/16. Pt has been started on a 5 day Ativan taper and tolerating well. S/S of withdrawal are being well managed with ordered medication. PRN Zofran, Vistaril x2, Clonidine, Trazodone were administered and effective. Pt slept for 6 hours. V/S remain WNL. Safety precautions are in place, will continue to monitor.
[2016-11-15 08:05] VITALS: BP 135/86
[2016-11-15] MEDS: CARVEDILOL 6.25 MG TABLET PO SCH ×2 (08:19→20:39)
[2016-11-15] MEDS: AMLODIPINE 10 MG TABLET PO SCH (08:19)
[2016-11-15] MEDS: MULTIVITAMINS,THERAPEUTIC TABLET PO SCH (08:19)
[2016-11-15] MEDS: IBUPROFEN 400 MG TABLET PO PRN (08:19)
[2016-11-15] MEDS: THIAMINE HCL 100 MG TABLET PO SCH (08:20)
[2016-11-15] MEDS: GABAPENTIN 300 MG CAPSULE PO SCH ×3 (08:20→20:38)
[2016-11-15] MEDS: LORAZEPAM 1 MG TABLET PO SCH ×2 (08:20→20:39)
[2016-11-15] MEDS: FOLIC ACID 1 MG TABLET PO SCH (08:20)
--- NOTE | 2016-11-15 08:22 | NUR ---
PRN IBUPROFEN Pt c/o of 2/10 headache. PRN Ibuprofen administered as ordered. Will reassess.
[2016-11-15] MEDS: ONDANSETRON 4 MG/2 ML VIAL IM PRN ×4 (08:26→23:38)
--- NOTE | 2016-11-15 08:30 | NUR ---
PRN ZOFRAN Pt c/o of increased nausea. No emesis noted. Reports only nausea is present, PRN Zofran IM administered as ordered. Will reassess.
--- NOTE | 2016-11-15 08:56 | NUR ---
REASSESSMENT Pt reports medication was effective and denies feeling nauseous at this time.
--- NOTE | 2016-11-15 09:19 | NUR ---
REASSESSMENT Pt states Ibuprofen was effective and denies headache at this time.
[2016-11-15 12:00] VITALS: BP 141/82
--- NOTE | 2016-11-15 14:42 | NUR ---
PRN VISTARIL Pt complains of increased anxiety. Pt encouraged to take deep breaths, pt states nonpharmacological methods are ineffective. PRN Vistaril administered as ordered. Will reassess.
--- NOTE | 2016-11-15 15:42 | NUR ---
REASSESSMENT Pt reports medication was effective but states he still has some anxiety. Nonpharmacological methods encouraged.
[2016-11-15 16:00] VITALS: BP 129/90
--- NOTE | 2016-11-15 16:33 | NUR ---
Pt c/o nausea and vomiting. Zofran 4mg IM prn administered.
--- NOTE | 2016-11-15 17:03 | NUR ---
REASSESSMENT Pt states nausea improved.
[2016-11-15] MEDS: CLONIDINE HCL 0.1 MG TABLET PO PRN (17:15)
--- NOTE | 2016-11-15 17:15 | NUR ---
PRN CLONIDINE Pt complains of anxiety and diaphoresis. PRN Clonidine administered as ordered. Will reassess.
--- NOTE | 2016-11-15 18:41 | NUR ---
REASSESSMENT Pt states he feels some anxiety. No diaphoresis noted. V/S remain WNL 140/88, heart rate 90. Pt encouraged to lie down in bed and take deep breaths. Pt encouraged to verbalize feelings.
--- NOTE | 2016-11-15 19:06 | NUR ---
D/C NOTES Endorsed to shift supervisor rn nurse. 51 year old male patient admitted on 11/08/16 for ETOH and Xanax withdrawals. Pt is full code with NKA and follows a regular diet. Medical hx of anxiety and GERD and HTN related to withdrawals. Pt has been started on a 5 day Ativan taper and tolerating well. S/S of withdrawal are being well managed with ordered medication. PRN Zofran x2, Vistaril, and Clonidine,administered and effective. V/S remain WNL. Most recent CIWA is 4. Pt reports BM x1. Eats 100% of meals. Safety precautions are in place, night nurse will continue to monitor. Addendum: 11/15/16 at 1913 by JORGE IBARRA RN END OF SHIFT NOTES, NOT DISCHARGE
--- NOTE | 2016-11-15 19:13 | NUR ---
END OF SHIFT NOTES CORRECT Endorsed to body bumper nurse. 51 year old male patient admitted on 11/08/16 for ETOH and Xanax withdrawals. Pt is full code with NKA and follows a regular diet. Medical hx of anxiety and GERD and HTN related to withdrawals. Pt has been started on a 5 day Ativan taper and tolerating well. S/S of withdrawal are being well managed with ordered medication. PRN Zofran x2, Vistaril, and Clonidine,administered and effective. V/S remain WNL. Most recent CIWA is 4. Pt reports BM x1. Eats 100% of meals. Safety precautions are in place, night nurse will continue to monitor.
[2016-11-15 20:00] VITALS: BP 134/83
--- NOTE | 2016-11-15 20:00 | NUR ---
Start of Shift Patient is a 51-year old, male, admitted for ETOH dependency. With reported PMHx of Anxiety and GERD. Pt is Full Fode, on Regular Diet with NKA. Pt on a 5-day Ativan taper, started 11/09/2016, and tolerated well. Pt is AAOx4, with no SOB noted at this time. Noted with anxiety and tremors. Pt is ambulatory with steady gait. No open skin noted. Fall, universal and safety prec in place. Call light within reach. Kept pt warm, dry and comfortable. All needs met. Last CIWA=7. Will continue to monitor pt.
--- NOTE | 2016-11-15 20:55 | NUR ---
RN note MD Communication Pt verbalized that Vistaril helps alleviate his anxiety but "only lasts for a few hours". Spoke with Dr. Rosario and ordered to increase Vistaril to 50 mg PO Q6H PRN from 25 mg. Entered in [employer].
--- NOTE | 2016-11-15 21:12 | NUR ---
RN note PRN Vistaril Pt c/o increasing anxiety. Administered Vistaril 50 mg PO. Will reassess.
[2016-11-15] MEDS ORDERED: HYDROXYZINE PAMOATE 25 MG CAPSULE ONE (21:21)
--- NOTE | 2016-11-15 22:15 | NUR ---
RN note reassess Pt verbalized "I feel better with Vistaril. My anxiety has improved."
--- NOTE | 2016-11-15 23:39 | NUR ---
RN note PRN Zofran Pt c/o nausea, no vomiting. Administered Zofran 4 mg IM. No bleeding noted. Will reassess.
[2016-11-16] VITALS: BP 130/84
[2016-11-16] MEDS: IBUPROFEN 400 MG TABLET PO PRN (00:12)
[2016-11-16] MEDS: diphenhydrAMINE 50 MG CAPSULE PO PRN ×2 (00:12→21:54)
--- NOTE | 2016-11-16 00:12 | NUR ---
RN note reassess Pt verbalized feeling better and with "less nausea". No SOB noted.
[2016-11-16] MEDS: CLONIDINE HCL 0.1 MG TABLET PO PRN ×2 (00:13→12:20)
--- NOTE | 2016-11-16 00:13 | NUR ---
RN note PRN Benadryl, Clonidine and Motrin Pt c/o inability to sleep, administered Benadryl 50 mg PO. Pt c/o increasing jitters and restlessness, administered Clonidine 0.1 mg PO. Pt c/o headache=5/10, administered Motrin 400 mg PO. Will monitor and reassess.
--- NOTE | 2016-11-16 01:15 | NUR ---
RN note reassess Pt asleep on bed, no SOB nor facial grimacing noted. PRN meds given are effective.
[2016-11-16 04:00] VITALS: BP 136/86
[2016-11-16] MEDS: PANTOPRAZOLE SODIUM 40 MG TABLET.DR PO SCH (07:02)
--- NOTE | 2016-11-16 07:29 | NUR ---
End of Shift Patient is a 51-year old, male, admitted for ETOH dependency. With reported PMHx of Anxiety and GERD. Pt is Full Fode, on Regular Diet with NKA. Pt on a 5-day Ativan taper, started 11/09/2016, and tolerated well. Pt is AAOx4, with no SOB noted at this time. Noted with anxiety and tremors. Pt is ambulatory with steady gait. No open skin noted. Fall, universal and safety prec in place. Call light within reach. Kept pt warm, dry and comfortable. All needs met. Last CIWA=4, slept for 6 hours. Endorsed to AM shift nurse for continuity of care.
--- NOTE | 2016-11-16 07:30 | NUR ---
START OF SHIFT NOTE: Received report from plating technician nurse. Patient is a 51-year old, male, admitted for ETOH dependency on 11-08-16. Pt completed a 5 day Ativan taper. Pt is alert and oriented X4. Color good, skin warm and dry. respirations even and unlabored. Safety precautions observed. Call light within reach. Will continue to monitor.
[2016-11-16 08:00] VITALS: BP 150/105
[2016-11-16] MEDS: GABAPENTIN 300 MG CAPSULE PO SCH ×3 (08:42→21:54)
[2016-11-16] MEDS: FOLIC ACID 1 MG TABLET PO SCH (08:43)
[2016-11-16] MEDS: THIAMINE HCL 100 MG TABLET PO SCH (08:43)
[2016-11-16] MEDS: CARVEDILOL 6.25 MG TABLET PO SCH (08:43)
[2016-11-16] MEDS: MULTIVITAMINS,THERAPEUTIC TABLET PO SCH (08:44)
[2016-11-16] MEDS: AMLODIPINE 10 MG TABLET PO SCH (08:44)
[2016-11-16] MEDS ORDERED: LORAZEPAM 1 MG TABLET PO SCH (09:00)
--- NOTE | 2016-11-16 12:15 | NUR ---
VSS Pt c/o nausea. Zofran 4mg IM prn administered. Pt also c/o anxiety. Clonidine 0.1mg po prn and Vistaril 50mg po prn given
[2016-11-16] MEDS: ONDANSETRON 4 MG/2 ML VIAL IM PRN (12:16)
[2016-11-16] MEDS: HYDROXYZINE PAMOATE 25 MG CAPSULE PO PRN ×2 (12:21→18:28)
[2016-11-16 13:09] VITALS: BP 159/89
--- NOTE | 2016-11-16 13:15 | NUR ---
Pt states nausea improved after Zofran prn also less anxious after Clonidine and vistaril prn
[2016-11-16] MEDS ORDERED: CARVEDILOL 12.5 MG TABLET PO ONE (15:00)
[2016-11-16] MEDS ORDERED: Gabapentin PO ×2 (17:07)
[2016-11-16] MEDS ORDERED: AMLO10TA2 PO (17:07)
[2016-11-16] MEDS ORDERED: CARV25TA2 PO (17:07)
[2016-11-16] MEDS ORDERED: HYDR-3895 PO (17:07)
[2016-11-16] MEDS ORDERED: TRAZ-144 PO (17:07)
[2016-11-16 17:33] LABS: *AMPHETAMINE, URINE NEGATIVE (NEGATIVE); *BARBITURATE, URINE NEGATIVE (NEGATIVE); *CANNABINOID, URINE NEGATIVE (NEGATIVE); *COCCAINE, URINE NEGATIVE (NEGATIVE); *OPIATE, URINE NEGATIVE (NEGATIVE); *PHENCYCLIDINE SCREEN,URINE NEGATIVE (NEGATIVE)
[2016-11-16 17:40] VITALS: BP 121/85
--- NOTE | 2016-11-16 18:50 | NUR ---
END OF SHIFT NOTE: Report given to sulky driver nurse. Patient is a 51-year old, male, admitted for ETOH dependency on 11-08-16. Pt completed a 5 day Ativan taper. To be discharged in AM. Pt is alert and oriented X4. Color good, skin warm and dry. Respirations even and unlabored. . Vital signs have remained stable throughout shift. Pt received Zofran 4mg IM prn, Clonidine 0.1mg po prn and Vistaril 50mg po prn @ 1215 and 1830. Last CIWA 4 @ 1700. Safety precautions observed. Call light within reach.
--- NOTE | 2016-11-16 19:12 | NUR ---
Start of shift note Received report from day shift nurse. Pt is a 51 yo male, A+Ox4, presenting to [facility] for ETOH/Benzo dependence. Pt has NKA, is Full Code status, and on Regular diet. Pt has HX of Anxiety, GERD, and HTN. Pt is on Fall and Seizure precautions. Pt is has completed 5 day Ativan taper, tolerated well, and is due for discharge tomorrow. No s/s of distress noted at this time. Respirations even and unlabored. Will continue to monitor.
[2016-11-16 20:08] VITALS: BP 125/79
[2016-11-16] MEDS ORDERED: CARVEDILOL 6.25 MG TABLET PO SCH (21:00)
[2016-11-16] MEDS ORDERED: CARVEDILOL 25 MG TABLET PO SCH (21:00)
[2016-11-16] MEDS: ACETAMINOPHEN 325 MG TABLET PO PRN (21:54)
[2016-11-16] MEDS: CARVEDILOL 25 MG TABLET PO SCH (21:54)
--- NOTE | 2016-11-16 21:55 | NUR ---
RN note PRN Benadryl and Tylenol Pt c/o inability to sleep, administered Benadryl 50 mg PO as ordered. Pt c/o headache=5/10, administered Tylenol 650 mg PO as ordered. Will reassess.
--- NOTE | 2016-11-16 22:40 | NUR ---
PRN Benadryl and Tylenol Reassessment Medications effective. Pt is resting well in bed with no s/s of pain noted at this time. No s/s of ASE/distress noted at this time. Respirations even and unlabored. Will continue to monitor.
[2016-11-17 00:17] VITALS: BP 128/74
[2016-11-17] MEDS: HYDROXYZINE PAMOATE 25 MG CAPSULE PO PRN (03:50)
--- NOTE | 2016-11-17 03:50 | NUR ---
PRN Vistaril Pt c/o anxiety and requested for PRN Vistaril. Medication given and tolerated well. Will reassess within 1 HR. Will continue to monitor.
--- NOTE | 2016-11-17 04:22 | NUR ---
PRN Vistaril Reassessment Medication effective. Pt shows reduction in Anxiety. No s/s of ASE/distress noted at this time. Respirations even and unlabored. Will continue to monitor.
[2016-11-17 04:38] VITALS: BP 146/86
[2016-11-17] MEDS: PANTOPRAZOLE SODIUM 40 MG TABLET.DR PO SCH (06:19)
--- NOTE | 2016-11-17 07:04 | NUR ---
End of shift note Pt is a 51 yo male, A+Ox4, presenting to [facility] for ETOH/Benzo dependence. Pt has NKA, is Full Code status, and on Regular diet. Pt has HX of Anxiety, GERD, and HTN. Pt is on Fall and Seizure precautions. Pt is has completed 5 day Ativan taper, tolerated well, and is due for discharge today. Pt was given PRN Benadryl and Tylenol @2155 and PRN Vistaril @0350. Pt slept for a total of 6 HRS. Last CIWA: 2 @0400. No s/s of distress noted at this time. Respirations even and unlabored. Will endorse to day shift nurse.
--- NOTE | 2016-11-17 07:43 | NUR ---
START OF SHIFT Received pt this AM AOx4. Patient is scheduled for discharge today and pt reports he feels ready to go. Patient slept 6 hours last night. Patient given PRN Benadryl, Tylenol, and Vistaril last shift with effectiveness. Last CIWA 2 per night nurse. Will continue to monitor. Will discharge patient this morning.
[2016-11-17 08:00] VITALS: BP 155/104
[2016-11-17] MEDS: GABAPENTIN 300 MG CAPSULE PO SCH (08:12)
[2016-11-17 08:13] VITALS: BP 155/104
[2016-11-17] MEDS: FOLIC ACID 1 MG TABLET PO SCH (08:13)
[2016-11-17] MEDS: AMLODIPINE 10 MG TABLET PO SCH (08:13)
[2016-11-17] MEDS: CLONIDINE HCL 0.1 MG TABLET PO PRN (08:13)
[2016-11-17] MEDS: CARVEDILOL 25 MG TABLET PO SCH (08:13)
[2016-11-17] MEDS: MULTIVITAMINS,THERAPEUTIC TABLET PO SCH (08:13)
[2016-11-17] MEDS: THIAMINE HCL 100 MG TABLET PO SCH (08:13)
--- NOTE | 2016-11-17 09:05 | NUR ---
DISCHARGE NOTE Pt is in stable condition. Vitals WNL. Pt is alert and oriented x4. Skin intact. patient denies suicidal or homicidal ideations. All discharge paperwork completed, dated and signed. Pt educated about discharge instructions, what to do after discharge, when to contact MD. Pt verbalized understanding of all info given. Pt last CIWA was 2. Pt was discharged from [facility] on 11/17/16 at 0902 and picked up by [employer]. Pt left building with belongings and rx, pt did not bring any meds with him to unit. MD has been contacted and notified on Pt discharge.
== END 2016-11-17 09:00 | disposition home or self-care (01) | DRG 895 ==
LOC: SRC 14:08
PROVIDERS: ADMIT Internal Medicine; ATTEND Internal Medicine
PROC: HZ2ZZZZ Detoxification Services for Substance Abuse Treatment (ICD-10-PCS; principal; 2016-11-08)
PROC: HZ31ZZZ Individual Counseling for Substance Abuse Treatment, Behavioral (ICD-10-PCS; 2016-11-10)
PROC: HZ41ZZZ Group Counseling for Substance Abuse Treatment, Behavioral (ICD-10-PCS; 2016-11-11)
DX: F10.230 Alcohol dependence with withdrawal, uncomplicated (principal); F10.220 Alcohol dependence with intoxication, uncomplicated; F13.10 Sedative, hypnotic or anxiolytic abuse, uncomplicated; Y90.8 Blood alcohol level of 240 mg/100 ml or more; K21.9 Gastro-esophageal reflux disease without esophagitis; E86.0 Dehydration; E87.6 Hypokalemia; F14.10 Cocaine abuse, uncomplicated; F17.210 Nicotine dependence, cigarettes, uncomplicated; E83.42 Hypomagnesemia; I15.9 Secondary hypertension, unspecified
CPT/HCPCS: 36415; 70030-TC; 80307; 80346; 80353; 82306; 82746; 83690; 83735; 84100; 84443; 85025; 86580; 86592; 86705; 86803; 87340; 87806; C9113; G6040-TC; J2405; J3411; J3490; J7030; J7042; Q0162; Q0163

== ENCOUNTER 2018-03-09 11:48 | Inpatient (IN) | payer BC, OTHER ==
[~2018-03-09] VITALS: Ht 182.9 cm; Wt 81.6 kg
[~2018-03-09 11:48] MED LIST: AMLO10TA2 PO; CARV25TA2 PO; Gabapentin PO; HYDR-3895 PO; OMEP20TA20 PO; TRAZ-213 PO
[2018-03-09] MEDS ORDERED: FLUO20CA36 PO (12:40)
--- NOTE | 2018-03-09 12:46 | NUR ---
PRE ASSESSMENT: A 52 year old man with a steady gait and loud speech in intake. He has a boot to L foot from fractured heel. He states he started taking [place] 3 months ago (4 pills daily) PO He last took 8 pills today 2 hours ago. He is unsure of mg. He states he relapsed on alcohol 4 days ago and has been drinking 1000 ml. (1 Liter ) of Fireball whiskey daily. He last drank 250 ml 1 hour ago and appears intoxicated with loud speech and having trouble with focusing and answering assessment questions. He is slightly disheveled and unorganized thoughts noted. He denies SZ hx. He denies S/I and H/I. He hangs his head down at times and becomes tearful and emotional regarding relapse. He states he takes Prozac at home for depression and unsure of dose. He also states he takes Coreg and Norvasc for HTN. unsure of dose. No home meds brought in. Will assess on unit.
[2018-03-09 13:30] VITALS: BP 142/83
[2018-03-09] MEDS ORDERED: LOPERAMIDE HCL 2 MG CAPSULE PO PRN ×2 (13:45)
[2018-03-09] MEDS ORDERED: MAGNESIUM HYDROXIDE 30 ML LIQUID UDC PO PRN (13:45)
[2018-03-09] MEDS ORDERED: THIAMINE HCL 200 MG/2 ML VIAL IM ONE (13:45)
[2018-03-09] MEDS ORDERED: MIRALAX 17 GM POWD.PACK PO PRN (13:45)
[2018-03-09] MEDS ORDERED: DIAZEPAM 5 MG TABLET PO PRN (13:45)
[2018-03-09] MEDS ORDERED: diphenhydrAMINE 50 MG CAPSULE PO PRN (13:45)
[2018-03-09] MEDS ORDERED: HYDROXYZINE PAMOATE 25 MG CAPSULE PO PRN (13:45)
[2018-03-09] MEDS ORDERED: MAG HYDROX/AL HYDROX/SIMETH 30 ML LIQUID UDC PO PRN (13:45)
[2018-03-09] MEDS: ONDANSETRON 4 MG/2 ML VIAL IM PRN ×2 (13:46→19:59)
[2018-03-09] MEDS ORDERED: GABAPENTIN 600 MG PO SCH (14:00)
[2018-03-09] MEDS: ACETAMINOPHEN 325 MG TABLET PO PRN (14:39)
[2018-03-09] MEDS: CARVEDILOL 25 MG TABLET PO SCH ×2 (14:39→20:32)
[2018-03-09] MEDS: AMLODIPINE 10 MG TABLET PO SCH (14:39)
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
[2018-03-09] MEDS ORDERED: PROMETHAZINE HCL 25 MG TABLET PO ONE (15:00)
[2018-03-09] MEDS: DIAZEPAM 10 MG TABLET PO PRN ×2 (15:49→20:32)
--- NOTE | 2018-03-09 15:50 | NUR ---
Valium 10 mg PO PRN given for CIWA 15. Phenergan PO given for Nausea and dry heaves.Will monitor effectiveness.
[2018-03-09 16:00] VITALS: BP 121/72
[2018-03-09 16:13] LABS: *AMPHETAMINE, URINE NEGATIVE (NEGATIVE); *BARBITURATE, URINE NEGATIVE (NEGATIVE); *CANNABINOID, URINE NEGATIVE (NEGATIVE); *COCCAINE, URINE NEGATIVE (NEGATIVE); *OPIATE, URINE POSITIVE (NEGATIVE); *PHENCYCLIDINE SCREEN,URINE NEGATIVE (NEGATIVE)
[2018-03-09 16:17] LABS: BASOPHILS % (AUTO) 0.5 % (0.0-2.0); EOSINOPHILS % (AUTO) 0.2 % (0.0-7.0); HEMOGLOBIN 14.6 g/dL (12.5-16.3); LYMPHOCYTES # (AUTO) 1.5 K/uL (20.0-40.0); LYMPHOCYTES % (AUTO) 22.3 % (20.5-51.5); MEAN CORPUSCULAR HGB CONC 35 g/dL (32.5-36.3); MEAN CORPUSCULAR VOLUME 89.2 fL (73.0-96.2); MONOCYTES # (AUTO) 0.5 K/uL (2.0-10.0); MONOCYTES % (AUTO) 7.9 % (0.0-11.0); NEUTROPHILS # (AUTO) 4.7 K/uL (1.8-8.9); NEUTROPHILS % (AUTO) 69.1 % (38.5-71.5); PLATELET COUNT (AUTO) 282 K/uL (152-348); WHITE BLOOD COUNT (AUTO) 6.8 K/uL (3.6-10.2)
[2018-03-09 16:30] LABS: BILIRUBIN,TOTAL 0.3 mg/dL (0.2-1.0); CREATININE 1.1 mg/dL (0.6-1.3); MAGNESIUM 1.5 mg/dL (1.8-2.4); POTASSIUM 3.2 mmol/L (3.5-5.1)
--- NOTE | 2018-03-09 16:50 | NUR ---
PRN Valium effective AEB CIWA 8. Pt states the nausea has ceased.
[2018-03-09] MEDS: GABAPENTIN 300 MG CAPSULE PO SCH ×2 (17:00→20:32)
--- NOTE | 2018-03-09 18:34 | NUR ---
END OF SHIFT: Pt newly admitted this afternoon.He was dry heaving and vomiting during assessment and intoxicated. He was given Zofran IM PRN,Phenergan PO PRN,IM Thiamine and PRN Valium 10 mg PO PRN. He is now sleeping. CIWA was 15 and last CIWA 8 before he fell asleep. Call dey in reach. Bed locked and low. Magnesium and Potassium low and to be replaced tonight. Will pass shift report to oncoming night nurse.
--- NOTE | 2018-03-09 19:35 | NUR ---
Start of Shift Note Received a 52 y/o male px, admitted for medically supervised withdrawal from ETOH and [place]. Px is on PRN Valium at the moment. Last reported CIWA 8 by Am shift nurse. During the rounds at 1935, px is awake on bed in left side lying position. Px appears anxious and depressed. Px is disheveled and unshaven. Px complains of N/V, stomach cramps, anxiety of 8/10 and H/A of 5/10. Mild bilateral hand tremors noted. Few drinks noted on top of his bed side table. Bed on lowest position, side rails up 2x and call light within reach. Well continue to monitor.
--- NOTE | 2018-03-09 19:59 | NUR ---
PRN Zofran Px received Zofran 4 mg IM injected on his right deltoids for N/V. To reassess after 30 minutes
[2018-03-09 20:00] VITALS: BP 137/79
--- NOTE | 2018-03-09 20:00 | NUR ---
COWS 11 and CIWA 15 On assessment , px is awake on bed in fowlers position. Px appears anxious and depressed. He complains of N/V, H/A, stomach cramps and has mils bilateral hand tremors. UT= 111. will continue to monitor
[2018-03-09] MEDS ORDERED: POTASSIUM CHLORIDE 20 MEQ in IV NS 1000 ML 1,000 ML IV ONE (20:15)
--- NOTE | 2018-03-09 20:30 | NUR ---
Reassessment of N/V Px stated that he is still nauseated but no more episode of emesis.
--- NOTE | 2018-03-09 20:32 | NUR ---
PRN Valium Px received Valium 10 mg PO for CIWA of 15. To reassess CIWA after an hour.
--- NOTE | 2018-03-09 20:45 | NUR ---
IV peripheral line IV peripheral line started on right dorsal hand using 22G needle, done aseptically with good blood return and flushed with 10 cc of NS. Px tolerated well.
[2018-03-09] MEDS ORDERED: POTASSIUM CHLORIDE 20 MEQ TAB.PRT.SR PO ONE (21:00)
[2018-03-09] MEDS ORDERED: GABAPENTIN 900 MG PO SCH (21:00)
[2018-03-09] MEDS ORDERED: MAGNESIUM OXIDE 400 MG TABLET PO ONE (21:00)
--- NOTE | 2018-03-09 21:20 | NUR ---
IVF 1L NS with 20 mEq K+ IVF 1L NS with 20 mEq K+ hooked as 1x order running at 125 cc an hour inserted on a peripheral IV line on right dorsal hand . will continue to monitor
--- NOTE | 2018-03-09 21:32 | NUR ---
CIWA deferred CIWA deferred due to the px is asleep. To assess if the px is awake per doctor's order. will continue to monitor
[2018-03-09] MEDS ORDERED: BUPRENORPHINE HCL 2 MG TAB.SUBL SL PRN (22:30)
[2018-03-10] VITALS (7 sets, daily range): BP systolic 121–150; BP diastolic 77–94
--- NOTE | 2018-03-10 | NUR ---
COWS and CIWA deferred COWS and CIWA deferred due to the px is asleep, to assess if the px is awake per doctor's order. will continue to monitor.
--- NOTE | 2018-03-10 05:20 | NUR ---
COWS 11 and CIWA 18 Px woke up. Px appears anxious and depressed. He complains of nausea, H/A, stomach cramps and has gross bilateral hand tremors. He stated that his anxiety is 8/10. NJ= 90. will continue to monitor
[2018-03-10] MEDS: IBUPROFEN 600 MG TABLET PO PRN ×2 (05:30→11:31)
[2018-03-10] MEDS: DIAZEPAM 10 MG TABLET PO PRN ×3 (05:30→13:43)
--- NOTE | 2018-03-10 05:30 | NUR ---
PRN medications Px received Motrin 600 mg PO for H/A of 5/10, Zofran 4 mg SL for nausea and Valium 20 mg PO for CIWA of 18. will continue to monitor.
[2018-03-10] MEDS: ONDANSETRON ODT 4 MG TAB.RAPDIS SL PRN ×2 (05:31→19:19)
--- NOTE | 2018-03-10 06:00 | NUR ---
Reassessment of nausea Reassessment deferred due to the px is asleep.
--- NOTE | 2018-03-10 07:05 | NUR ---
End of Shift Note During the shift at 1958, px received Zofran 4 mg IM for N/V. At 2031, px received Valium 10 mg for CIWA 15. At 2119, px started and finished an IVF 1 L NS with 20 mEq potassium as 1x order ran at 125 ml/hr. At 529, px woke up. He received Zofran 4 mg SL for nausea, Motrin 600 mg PO for H/A and Valium 20 mg PO for CIWA of 18. Oral intake of 500 ml, voided 1x, No BM. At 629, px is asleep on bed in fowlers position. Last COWS 11 CIWA 18. Bed on lowest position, side rails up 2x and call light within reach. Well continue to monitor. Px endorsed to AM shift nurse.
--- NOTE | 2018-03-10 07:58 | NUR ---
Start of Shift Note: Report received from project specialist nurse. Pt is a 52M, admitted for ETOH and Opiate withdrawal. Per project specialist nurse, pts last COWS was 11 and last CIWA was 18. Pt is currently on PRN Valium and PRN Subutex to manage withdrawal symptoms. Awaiting MD to order taper medication. Upon start of shift, pt noted laying in his bed with eyes closed. Breathing even and unlabored. No facial grimacing noted. During assessment, pt is AOx4. Pt stated I feel nauseous. PRN medications to be given. IV site noted on R hand on saline lock, intact and patent. Pt has boot on left foot, noted with fx on heel from 3 months ago. Pt is pleasant, appears disheveled, and unshaven. Pt stated Ill try to take a shower today if I can. Pt slept for 9 hours. Bed in lowest position. Side rails up x2. Call light functioning and within reach. All needs attended and met. Will continue to monitor.
--- NOTE | 2018-03-10 08:00 | NUR ---
COWS 10 CIWA 16 Pt noted with slight diaphoresis, moderate tremors, irritability, moderate nausea with no vomiting, anxiety and agitation. COWS 10 CIWA 16.
[2018-03-10] MEDS ORDERED: TUBERCULIN,PURIF.PROT.DERIV. 5 TU/0.1 ML TEST ID ONE (09:00)
[2018-03-10] MEDS: ONDANSETRON 4 MG/2 ML VIAL IM PRN ×2 (09:14→16:14)
--- NOTE | 2018-03-10 09:15 | NUR ---
Zofran IM: Pt c/o moderate nausea. No vomiting noted. Zofran IM given before administering 0900 medications. Will reassess.
--- NOTE | 2018-03-10 09:30 | NUR ---
Zofran IM Reassessment: Pt noted slight relief from nausea. Pt stated "I think I can keep it down". No vomiting noted. Zofran IM effective. Morning medications to be given.
[2018-03-10] MEDS: GABAPENTIN 300 MG CAPSULE PO SCH ×3 (09:37→20:13)
[2018-03-10] MEDS: MULTIVITAMINS,THERAPEUTIC TABLET PO SCH (09:37)
[2018-03-10] MEDS: AMLODIPINE 10 MG TABLET PO SCH (09:38)
[2018-03-10] MEDS: CARVEDILOL 25 MG TABLET PO SCH ×2 (09:38→20:11)
[2018-03-10] MEDS: FOLIC ACID 1 MG TABLET PO SCH (09:38)
--- NOTE | 2018-03-10 09:38 | NUR ---
Valium PRN: Pt noted with CIWA 16. Pt to start 3-day Valium taper today. 10mg Valium given to be consistent with taper. Will continue to monitor.
[2018-03-10] MEDS: THIAMINE HCL 100 MG TABLET PO SCH (09:42)
[2018-03-10] MEDS: FLUOXETINE HCL 20 MG CAPSULE PO SCH (10:14)
[2018-03-10] MEDS: ACETAMINOPHEN 325 MG TABLET PO PRN (10:15)
--- NOTE | 2018-03-10 10:15 | NUR ---
Tylenol PRN: Pt noted with 7/10 pain. Pt c/o left foot pain r/t heel fx. Tylenol PRN given. Will continue reassess.
--- NOTE | 2018-03-10 10:30 | NUR ---
Valium Reassessment: CIWA 14. Pt stated some relief from nausea. Pt also appears less tremulous. Valium effective.
--- NOTE | 2018-03-10 11:15 | NUR ---
MD Communication: made aware of pt's pain on left foot r/t heel fx. with new order for 30mg Toradol IM Q6HPRN for 8-10 pain.
--- NOTE | 2018-03-10 11:30 | NUR ---
Tylenol Reassessment and Motrin PRN.: Pt still c/o 01/18 pain. Motrin PRN given as ordered. Will reassess.
--- NOTE | 2018-03-10 12:00 | NUR ---
COWS 20 CIWA 18 Pt noted with multiple episodes of vomiting. Pt also tremulous and irritable. Pt unable to sit still. Pt with mild anxiety/agitation. COWS 20 CIWA 18.
--- NOTE | 2018-03-10 12:30 | NUR ---
MD Communication: Pt still noted with nausea and dry heaving. MD with new order for 10mg Reglan Q4HPRN for nausea/vomiting. Awaiting medication to be delivered by pharmacy.
--- NOTE | 2018-03-10 12:44 | NUR ---
Subutex PRN: Pt noted with COWS 20. Subutex PRN given as ordered.
--- NOTE | 2018-03-10 13:08 | NUR ---
Therapist prompted to attend twice daily group therapy sessions and client agreed to do so.
--- NOTE | 2018-03-10 13:15 | NUR ---
Subutex reassessment. COWS 15 Pt noted with less irritability. Pt had no more episodes of dry heaving but is still nauseous. Subutex slightly effective. COWS 15.
[2018-03-10] MEDS: METOCLOPRAMIDE HCL 10 MG TABLET PO PRN (13:43)
--- NOTE | 2018-03-10 13:43 | NUR ---
Valium and Reglan: Pt still noted with nausea. Pt goes to bathroom and tries to vomit but is only dry heaving. Valium PRN and Reglan PRN given as ordered. Will continue to monitor.
--- NOTE | 2018-03-10 14:41 | NUR ---
COWS CI Pt noted with multiple episodes of vomiting. Pt also tremulous and irritable. Pt unable to sit still. Pt with mild anxiety/agitation. COWS . Addendum: 03/10/18 at 1446 by JOCELYN RIVERO RN ERROR WRONG TIME
--- NOTE | 2018-03-10 14:45 | NUR ---
Valium and Reglan Reassessment: Pt in bed able to relax. Pt still noted with slight nausea. Tremors improved but still visible. CIWA 15.
[2018-03-10] MEDS ORDERED: BUPRENORPHINE HCL 2 MG TAB.SUBL SL PRN (15:30)
--- NOTE | 2018-03-10 16:00 | NUR ---
COWS 15 CIWA 15 Pt with observable sweating, restlessness, constant nausea, slight tremors, slight anxiety and agitation. COWS 15 CIWA 15
[2018-03-10] MEDS: KETOROLAC TROMETHAMINE 30 MG INJ IM PRN (16:17)
--- NOTE | 2018-03-10 16:28 | NUR ---
PRN ZOFRAN AND TORADOL States generalized pain 02/18. toradol IM prn per MD order given and tolerated well. vomit episode x1 food particles and is nauseated still. Zofran IM prn per MD order given and tolerated well.
[2018-03-10] MEDS ORDERED: DIAZEPAM 10 MG TABLET PO PRN ×2 (16:45)
[2018-03-10] MEDS ORDERED: DIAZEPAM 5 MG TABLET PO PRN (16:45)
--- NOTE | 2018-03-10 17:00 | NUR ---
Zofran and Toradol Reassessment: Pt reported 0/10 pain at this time. Toradol IM effective. Pt also has ceased emesis and only reports some nausea. Zofran IM effective
[2018-03-10 17:16] LABS: CREATININE 1.2 mg/dL (0.6-1.3); POTASSIUM 4.2 mmol/L (3.5-5.1)
--- NOTE | 2018-03-10 17:45 | NUR ---
Subutex and Valium PRN: Pt noted with stomach cramps, restlessness, sweats. COWS 15. 4mg Subutex PRN given as ordered. Pt also with constant nausea, slight nervousness and anxiety. CIWA 15.
--- NOTE | 2018-03-10 19:08 | NUR ---
End of Shift Notes: Pt currently in bed resting. Pt had reoccurring nausea and dry heaving during shift. Zofran IM, and Reglan were given which was somewhat effective. Pt also c/o of pain r/t L heel fx. Motrin and Tylenol given which was effective. Pt had c/o generalized body pain. Toradol IM effective. Pt had elevated withdrawal symptoms. Last COWS was 15 and CIWA 15 at 1745. Valium and Subutex were given which managed the withdrawal symptoms. Pt currently wears boot on left foot to brace his heel fx. An alternative boot and sleeve was brought up from storage per pt request. Pt currently on Valium and Subutex taper to manage further withdrawal symptoms. All other needs attended and met. Bed in lowest position. Side rails up x2. Call light functioning and within reach. Report given to material handler 2nd shift nurse.
--- NOTE | 2018-03-10 19:19 | NUR ---
Zofran PRN: Pt had 2 episode of vomiting. Pt still with persistent nausea. 4mg Zofran SL PRN given as ordered. Endorsed to night nurse for reassessment.
--- NOTE | 2018-03-10 19:30 | NUR ---
START OF SHIFT Received 52 year old male patient admitted on 03/09/18 for ETOH and Opiate withdrawal. Pt is full code with NKA. Pt is alert and oriented x4. Pt noted with flushed face, anxiety, nausea, vomiting, sweats, agitation, restlessness, and irritability. Pt received multiple PRN medications of valium,zofran,tylenol, motrin,subutex, valium,reglan,and toradol. He is receiving a 3 day Valium taper and has PRN Subutex available. Last COWS: 15, CIWA:15 at 1600. Breathing is even and unlabored, safety measures in place. Will continue to monitor.
[2018-03-10] MEDS ORDERED: BUPRENORPHINE HCL 2 MG TAB.SUBL SL ONE (19:45)
[2018-03-10] MEDS: TRAZODONE 50 MG TABLET PO PRN (20:11)
--- NOTE | 2018-03-10 20:13 | NUR ---
ONE TIME SUBUTEX Pt still noted with excessive nausea/vomiting. Dr. Hinton notified with new order for Subutex 2 mg. Medication administered as ordered. Will monitor effectiveness
--- NOTE | 2018-03-10 20:19 | NUR ---
PRN ZOFRAN REASSESSMENT PRN medication ineffective. Pt still complains of nausea and dry heaving. Will monitor.
--- NOTE | 2018-03-10 20:45 | NUR ---
ONE TIME SUBUTEX REASSESSMENT Medication not effective. Pt complains of nausea, vomiting, restlessness, agitation and irritability. Will continue to monitor.
[2018-03-10] MEDS ORDERED: DIAZEPAM 10 MG TABLET PO ONE (21:00)
[2018-03-10] MEDS ORDERED: 3 DAY TAPER OF VALIUM-SERENITY PROTOCOL PO PRN (21:00)
[2018-03-10] MEDS ORDERED: IV NS 1000 ML 1,000 ML IV ONE (21:15)
[2018-03-10] MEDS: PROMETHAZINE HCL 25 MG TABLET PO PRN (21:47)
--- NOTE | 2018-03-10 21:47 | NUR ---
PRN PHENERGAN Pt still with persistent nausea and vomiting. PRN Phenergan 25 mg administered as ordered. Will continue to monitor effectiveness.
--- NOTE | 2018-03-10 21:49 | NUR ---
IV FLUIDS Pt still complains of nausea, dry heaving and vomiting. Pt unable to tolerate fluids. Dr. Hinton notified with order for IV NS 1,000mL at 125mL/hr x1 bag.
--- NOTE | 2018-03-10 22:47 | NUR ---
PRN PHENERGAN REASSESSMENT PRN medication ineffective. Pt still complains of nausea, unable to tolerate fluids. Ice chips at bedside. Will monitor.
[2018-03-10] MEDS ORDERED: PROCHLORPERAZINE EDISYLATE 10 MG/2 ML VIAL ONE (22:53)
[2018-03-10] MEDS: PROCHLORPERAZINE EDISYLATE 10 MG/2 ML VIAL IV PRN (22:54)
--- NOTE | 2018-03-10 22:54 | NUR ---
PRN COMPAZINE Pt still noted with increased nausea and vomiting unrelieved by PRN Phenergan and Zofran. PRN Compazine 10mg IV administered as ordered. Will monitor effectiveness.
--- NOTE | 2018-03-10 23:54 | NUR ---
PRN COMPAZINE REASSESSMENT PRN medication effective. Pt is lying in bed with eyes closed and is noted to be asleep. Breathing is even and unlabored, safety measures in place. Will monitor.
--- NOTE | 2018-03-11 | NUR ---
VITALS REFUSED, COWS/CIWA DEFERRED 0000 vitals refused at beginning of shift. Pt stated " please if I'm sleeping, don't wake me up. I've been sick and throwing up all day. I just really want to sleep." CIWA and COWS deferred d/t pt lying in bed with eyes closed and noted to be asleep. Safety measures in place. Will monitor.
--- NOTE | 2018-03-11 04:00 | NUR ---
VITALS REFUSED, COWS/CIWA DEFERRED 0400 vitals refused at beginning of shift. Pt stated " please if I'm sleeping, don't wake me up. I've been sick and throwing up all day. I just really want to sleep." CIWA and COWS deferred d/t pt lying in bed with eyes closed and noted to be asleep. Safety measures in place. Will monitor.
[2018-03-11 07:06] LABS: HEPATITIS B SURFACE AG Negative (Negative)
--- NOTE | 2018-03-11 07:09 | NUR ---
END OF SHIFT Pt is a 52 year old male patient admitted on 03/09/18 for ETOH and Opiate withdrawal. Pt is full code with NKA. He remains alert and oriented x4. Pt was noted with flushed face, anxiety, nausea, vomiting, sweats, agitation, restlessness, and irritability during he shift. At 2010 he received PRN Trazodone. At 2012 he received a one time order of Subutex 2 mg, at 2146 he received PRN Phenergan, at 2148 he received IV fluids of NS 125mL/hr, and at 2253 he received PRN Compazine 10 mg IV. He continues on a Valium taper and tolerating. He slept a total of 7 hrs, Intake: 1,361mL, Void: 0, Emesis: x4, BM:0, Last COWS: 16, CIWA:17 at 1999. Breathing is even and unlabored, safety measures in place. Endorsed to AM shift.
--- NOTE | 2018-03-11 07:30 | NUR ---
Start of Shift Sink Cutter received report on 52 year old male admitted to [facility] on 03/09/18 for medical management of ETOH and Opiate withdrawals. Pt endorses NKA, full code and regular diet. Endorses PMH of HTN and GERD with PPH of anxiety and depression. Pt currently with fractured left heal and sleeps with orthotic boot on. Pt with a PIV in right hand, saline locked. Pt currently on a 3 day Valium taper with last CIWA 17 and COWS 16 per NOC report. Pt administered PRN Phenergan(Nausea), Compazine IV(nausea), and Trazodone(Insomnia)on NOC, per report. Sink Cutter encounters pt in pts room. Pt Is resting. A/O x 4 and can make needs known. Pt is slow to process and states, I am a little foggy, Pt states he had a difficult nut with nausea and emesis. Pt is diaphoretic, tremulous, anxious, restless and has chills and nausea and generalized body discomfort. Bed in low position, with wheels locked and side rails up x2. Will continue to monitor, support and encourage according to plan of care.
[2018-03-11 08:00] VITALS: BP 116/75
--- NOTE | 2018-03-11 08:00 | NUR ---
CIWA 20/COWS 17 Pt is diaphoretic, tremulous, anxious and restless with emesis and near constant nausea. Pt complains of body aches and chills. Will continue to monitor, support and encourage according to plan of care.
[2018-03-11] MEDS: GABAPENTIN 300 MG CAPSULE PO SCH ×3 (08:45→22:03)
[2018-03-11] MEDS: THIAMINE HCL 100 MG TABLET PO SCH (08:45)
[2018-03-11] MEDS: DIAZEPAM 5 MG TABLET PO SCH ×3 (08:46→22:03)
[2018-03-11] MEDS: FLUOXETINE HCL 20 MG CAPSULE PO SCH (08:46)
[2018-03-11] MEDS: FOLIC ACID 1 MG TABLET PO SCH (08:46)
[2018-03-11] MEDS: AMLODIPINE 10 MG TABLET PO SCH (08:46)
[2018-03-11] MEDS: CARVEDILOL 25 MG TABLET PO SCH ×2 (08:46→21:00)
[2018-03-11] MEDS: MULTIVITAMINS,THERAPEUTIC TABLET PO SCH (08:46)
[2018-03-11] MEDS: PROCHLORPERAZINE EDISYLATE 10 MG/2 ML VIAL IV PRN (09:05)
--- NOTE | 2018-03-11 09:05 | NUR ---
PRN Compazine(IV) Pt nauseous with present emesis. Petroleum Refining Equipment Operator administered medication per order with pt tolerating well. Will continue to monitor, support and encourage according to plan of care.
--- NOTE | 2018-03-11 09:35 | NUR ---
PRN RE-Assessment Pt is resting with eyes closed, even and unlabored respirations. No reports of emesis. Will continue to monitor, support and encourage according to plan of care.
--- NOTE | 2018-03-11 12:00 | NUR ---
CIWA 16/COWS 15 Pt is tremulous, diaphoretic and anxious with restless legs. Pt complains of tactile hallucinations, nausea without emesis, and chills. Will continue to monitor, support and encourage according to plan of care.
[2018-03-11 12:25] VITALS: BP 116/80
[2018-03-11 16:30] VITALS: BP 121/74
--- NOTE | 2018-03-11 16:30 | NUR ---
CIWA 16/COWS 13 Pt is diaphoretic, tremulous, anxious, restless and has complaints of nausea and chills and tactile disturbances. Will continue to monitor, support and encourage according to plan of care.
[2018-03-11] MEDS ORDERED: DIAZEPAM 5 MG TABLET PO ONE (17:00)
[2018-03-11] MEDS: ONDANSETRON ODT 4 MG TAB.RAPDIS SL PRN (18:30)
--- NOTE | 2018-03-11 19:03 | NUR ---
End of Shift Peripatologist provided report on 52 year old male admitted to [facility] on 03/09/18 for medical management of ETOH and Opiate withdrawals. Pt endorses NKA, full code and regular diet. Endorses PMH of HTN and GERD with PPH of anxiety and depression. Pt currently with fractured left heal and sleeps with orthotic boot on. Pt with a PIV in right hand, saline locked. Pt had his Valium taper extended thru 03/13/18on NOC shift. Pt still also has PRN Subutex available. Last CIWA 16 and COWS 13. Pt administered PRN Compazine IV(nausea) by bond underwriter. Pt is A/O x 4 and can make needs known. Pt is diaphoretic, tremulous, restless and has chills and nausea. Pt with a linear thought process and has cleared from his morning, groggy. Clear speech pattern. Pt has been isolative to room and self. Pt states he is feeling better and is thankful for the extended taper, I will do whatever they tell me. Bed in low position, with wheels locked and side rails up x2.
--- NOTE | 2018-03-11 19:27 | NUR ---
Start Of Shift: patient is a 52 yr old male who was admitted to [facility] on 03/09/18 for a medically supervised withdrawal from ETOH ( whiskey) and Opiates ( [place]), he is on a modified Valium taper and this is day 4. Patient has had numerous emesis throughout day shift requiring PRN Compazine and Zofran, he has a 22G saline lock in Right hand for PRN IV fluids, no fluids currently running. He has a Left heel fracture and history of Hypertension. Last COWS 13 and CIWA 16 @ 1600. Continue to follow MD plan of care and offer support as needed.
[2018-03-11 20:00] VITALS: BP 133/72
[2018-03-11] MEDS ORDERED: IV NS 1000 ML 1,000 ML IV ONE (22:15)
--- NOTE | 2018-03-11 22:16 | NUR ---
PRN IV Fluids ^ 1000ml NS
[2018-03-11] MEDS: TRAZODONE 50 MG TABLET PO PRN (22:30)
--- NOTE | 2018-03-11 22:30 | NUR ---
PRN Trazodone Trazodone 50 MG PO given as requested for sleep
--- NOTE | 2018-03-11 23:30 | NUR ---
PRN Reassess patient soundly asleep in bed, respirations even and unlabored, IV fluids running at 125cc/hr, no distress noted
--- NOTE | 2018-03-12 | NUR ---
COWS/CIWA/VITALS Deferred per patient request to be able to sleep uninterrupted through the night, RR 14, breathing even and unlabored
[2018-03-12] MEDS: ONDANSETRON 4 MG/2 ML VIAL IM PRN (02:20)
[2018-03-12] MEDS: HYDROXYZINE PAMOATE 25 MG CAPSULE PO PRN ×3 (02:28→15:22)
[2018-03-12 02:30] VITALS: BP 119/73
--- NOTE | 2018-03-12 02:30 | NUR ---
COWS/CIWA COWS 11 - nausea/vomiting, restlessness, increased anxiety CIWA 18- bilateral hand tremors, N/V, diaphoresis, anxiety/agitation, dry mouth PRN Zofran 4mg IM and Vistaril 50mg PO given
--- NOTE | 2018-03-12 02:30 | NUR ---
PRN Zofran 4mg IM given for emesisx1 and nausea Vistaril 50mg PO given for reports of increased anxiety and tremors will reassess and continue to monitor
--- NOTE | 2018-03-12 03:30 | NUR ---
PRN Reassess N/V ceased, patient is asleep soundly in bed, IV fluids still running, pt got up to void x2
--- NOTE | 2018-03-12 06:00 | NUR ---
IV Fluids complete PIV dc'd
[2018-03-12] MEDS: ONDANSETRON ODT 4 MG TAB.RAPDIS SL PRN ×2 (06:54→15:23)
--- NOTE | 2018-03-12 06:55 | NUR ---
PRN Zofran 4 mg SL given for N/V Clonidine 0.1mg PO given for diaphoresis, chills and agitation will endorse to shift production associate
[2018-03-12] MEDS: CLONIDINE HCL 0.1 MG TABLET PO PRN (07:04)
--- NOTE | 2018-03-12 07:12 | NUR ---
End of Shift : Patient is a 52 yr old male who was admitted to [facility] on 03/09/18 for a medically supervised withdrawal from ETOH and Opiates, he has been placed on a modified Valium taper and this is day 4. Patient has recurring N/V requiring PRN Zofran IM, PRN Trazodone was given for sleep and PRN Vistaril for anxiety, clonidine and Zofran 4mg SL. Patient was feeling dehydrated, 1 L NS given thought R Hand PIV( IV dc'd @ 0600), patient voided x2. He had a PO fluid intake of 1000 ML, IV 1000ML, 3 Voids and 0 BM, last COWS 11 and CIWA 18 @ 0230, he slept for 11 hours. @ 0600 he took a shower. Withdrawal symptoms include shaking, diaphoresis, bilateral hand tremors, thirst, dry mouth, N/V and lethargy. Continue to follow MD plan of care and offer support as needed. Endorsed to day shift.
--- NOTE | 2018-03-12 07:30 | NUR ---
Start of Shift Last COWS 11, CIWA 18 at 0230. Pt on modified 5 day Valium taper. Pt presents with nausea, vomiting, gross tremors, sweats, chills, moderate anxiety, headache, light sensitivity, fatigue, and restlessness. He has flat affect, isolative, anhedonia, dysphoria, and depressed mood. Last night he slept 11 hours. Encouraged Pt to participate in group activities, socialize with others and identify positive coping skills to maintain sobriety. Seizure and Fall precautions and all safety measures in place. Side rails up x2. Call light functioning and within reach. All needs attended and met. Will continue to assess for withdrawal symptoms.
--- NOTE | 2018-03-12 07:55 | NUR ---
Reassess Zofran- Pt reports no further emesis episode. Pt remains extremely nauseated. Will administer PRN Reglan.
--- NOTE | 2018-03-12 08:00 | NUR ---
COWS 16/CIWA 26- Pt presents with flushed face and body, sweats/chills, gross tremors, moderate/severe anxiety, headache, light sensitivity, nausea and vomiting.
[2018-03-12 08:01] VITALS: BP 135/69
[2018-03-12] MEDS: METOCLOPRAMIDE HCL 10 MG TABLET PO PRN (08:48)
[2018-03-12] MEDS: CARVEDILOL 25 MG TABLET PO SCH ×2 (08:49→20:25)
[2018-03-12] MEDS: AMLODIPINE 10 MG TABLET PO SCH (08:50)
[2018-03-12] MEDS: THIAMINE HCL 100 MG TABLET PO SCH (08:50)
[2018-03-12] MEDS: DIAZEPAM 5 MG TABLET PO SCH ×3 (08:50→20:25)
[2018-03-12] MEDS: GABAPENTIN 300 MG CAPSULE PO SCH ×3 (08:50→20:26)
[2018-03-12] MEDS: FOLIC ACID 1 MG TABLET PO SCH (08:51)
[2018-03-12] MEDS: MULTIVITAMINS,THERAPEUTIC TABLET PO SCH (08:51)
[2018-03-12] MEDS: IBUPROFEN 600 MG TABLET PO PRN ×2 (08:55→20:25)
--- NOTE | 2018-03-12 08:56 | NUR ---
PRN Reglan 10 mg po for nausea PRN Vistaril 50 mg po for moderate anxiety PRN Ibuprofen 600 mg po for left foot/heel fracture pain #4/
[2018-03-12] MEDS ORDERED: DIAZEPAM 5 MG TABLET PO SCH (09:00)
[2018-03-12] MEDS: FLUOXETINE HCL 20 MG CAPSULE PO SCH (09:43)
--- NOTE | 2018-03-12 10:00 | NUR ---
Reassess Reglan- Pt reports he still has nausea but it has improved. No emesis. Reassess Vistaril- Pt reports anxiety improved Reassess Ibuprofen- Pt report left foot pain now #2/. medication effective.
[2018-03-12 12:00] VITALS: BP 106/66
--- NOTE | 2018-03-12 12:21 | NUR ---
COWS 16/ CIWA 26- Withdrawal symptoms include, fatigue, flushed face, moderate anxiety, gross tremors, chills/sweats, nausea, light sensitivity, decreased appetite, depression, difficulty concentrating, poor sleep, bad dreams, anhedonia, dysphoria, dyspepsia, headache and generalized discomfort.
--- NOTE | 2018-03-12 15:23 | NUR ---
PRN Zofran 4 mg po SL for emesis and nausea. Pt had one episode of emesis after lunch. PRN Vistaril 50 mg po for moderate to severe anxiety. Pt anxious about continued emesis and beign discharged home to early with the continued nausea and emesis. Addendum: 03/12/18 at 1537 by Lizeth Harrington RN Pt emesis was approx 1400. Pt waited to tell staff to is if it would resolve. He is still nauseated.
[2018-03-12 16:05] VITALS: BP 122/68
--- NOTE | 2018-03-12 16:07 | NUR ---
COWS 16/ CIWA 20- Withdrawal symptoms include fatigue, nausea, vomiting, moderate anxiety, chills/sweats, light sensitivity, decreased appetite, depression, gross tremors, difficulty concentrating, poor sleep, anhedonia, dysphoria, dyspepsia, and generalized discomfort. Administer taper protocol and PRN medications as ordered.
--- NOTE | 2018-03-12 16:25 | NUR ---
Reassess Raynafran and Nellril- Pt is bed resting with eyes closed, appears to be asleep. Resp even and unlabored, vital signs stable. Pt was able to tolerate and not vomit up water and saltine crackers about 40 minutes ago.
[2018-03-12] MEDS ORDERED: IV NORMAL SALINE 250 ML BAG IV PRN (17:15)
--- NOTE | 2018-03-12 17:20 | NUR ---
IV insertion- Pt continues to c/o nausea and c/o dehydration. IV 0.9% NS ordered at 125cc/hr. Inserted #22 gauge saline lock in left hand. IV patent, flushes, NS infusing, no swelling or pain.
--- NOTE | 2018-03-12 17:20 | NUR ---
Pt reports nausea improved. He tolerated, sneha tia, crackers, and chips.
[2018-03-12] MEDS ORDERED: IV NS 1000 ML 1,000 ML IV PRN (17:30)
--- NOTE | 2018-03-12 18:37 | NUR ---
End of Shift Last COWS 16, CIWA 20 at 1600. Pt on modified 5 day Valium taper. Withdrawal symptoms today include nausea, vomiting, poor appetite, flushed face and chest, gross tremors, sweats, chills, moderate anxiety, headache, light sensitivity, fatigue, generalized discomfort, poor sleep, bad dreams, and restlessness. He presents with flat affect, isolative, anhedonia, dysphoria, and depressed mood. Pt continues to have nausea, poor appetite. Started IV #22 gauge left hand and infusing NS 0.9% at 125 cc/hr. PRNs given Reglan, Vistaril, Ibuprofen, and Zofran. Pt was able to perform ADLs and shower today. Encouraged Pt to participate in group activities, socialize with others and identify positive coping skills to maintain sobriety. Pt has too many withdrawal symptoms to attend group therapy sessions. PO fluids 1500 ml, voids x 2, no BM, emesis x1. Seizure and Fall precautions and all safety measures in place. Side rails up x2. Call light functioning and within reach. All needs attended and met. Will continue to assess for withdrawal symptoms. Endorsed to PM shift.
--- NOTE | 2018-03-12 19:15 | NUR ---
Start of Shift Patient is a 52 yr old male who was admitted to [facility] on 03/09/18 for a medically supervised withdrawal from ETOH and Opiates ( [place]), he has been placed on a modified Valium taper and this is day 3. Patient has had hyper emesis since admission requiring numerous anti emetics, PIV re started in L Hand at 1730 today and 1L NS running @ 125 cc/hr. PRN medications given on day shift : Reglan PO, Vistaril, Ibuprofen and Zofran. lat COWS 16 and CIWA 20 @ 1600. He is lying in bed at this time watching TV, no concerns voiced at this time, Continue to follow MD plan of care and offer support as needed.
[2018-03-12 20:00] VITALS: BP 136/79
--- NOTE | 2018-03-12 20:25 | NUR ---
PRN Motrin 600mg PO given for c/o headache 11/18
--- NOTE | 2018-03-12 20:25 | NUR ---
COWS 13/ CIWA 19 withdrawal symptoms present as diaphoresis, N/V, restlessness, bilateral hand tremors, yawning, irritability and anxiety and headache Schedule 5mg PO Valium and 900mg PO Gabapentin given Motrin 600mg PO given for headache 5/10
--- NOTE | 2018-03-12 21:25 | NUR ---
PRN Reassess Patient is asleep in bed, breathing even and unlabored, call light within reach
--- NOTE | 2018-03-13 | NUR ---
CIWA/VS Deferred due to patient being sound asleep, RR 14 , breathing even and unlabored
[2018-03-13] MEDS: TRAZODONE 50 MG TABLET PO PRN (01:40)
[2018-03-13] MEDS: HYDROXYZINE PAMOATE 25 MG CAPSULE PO PRN ×2 (01:40→13:09)
[2018-03-13] MEDS: CLONIDINE HCL 0.1 MG TABLET PO PRN (01:40)
--- NOTE | 2018-03-13 01:45 | NUR ---
PRN Clonidine 0.1mg Po and Vistaril 50mg PO given for anxiety and racing thoughts and irritability Trazodone 50mg PO given for sleep aid
--- NOTE | 2018-03-13 02:45 | NUR ---
PRN Reassess Patient asleep soundly in bed, RR 14, breathing even and unlabored
--- NOTE | 2018-03-13 04:00 | NUR ---
CIWA/COWS/Vitals Deferred due to patient being in deep sleep, RR 14, breathing even and unlabored
--- NOTE | 2018-03-13 06:56 | NUR ---
End of Shift : Patient is a 52 yr old male who was admitted to [facility] on 03/09/18 for a medically supervised withdrawal from ETOH and Opiates, he has been placed on a modified Valium taper and this is day 4. Patient has recurring N/V he had 1 L of NS run during the night, IV dislodged and came out when patient had a shower at 0630 am, patient voided x2. He had a PO fluid intake of 1800 ML, IV 1000ML, 3 Voids and 0 BM, last COWS 13 and CIWA 19 @ 8pm, he slept for 10 hours. Withdrawal symptoms include shaking, diaphoresis, bilateral hand tremors, thirst, dry mouth and lethargy. Continue to follow MD plan of care and offer support as needed. Endorsed to day shift.
--- NOTE | 2018-03-13 07:25 | NUR ---
Start of Shift Patient is a 52 yr old male who was admitted to [facility] on 03/09/18 for a medically supervised withdrawal from ETOH and Opiates ( [place]), he continues on a Valium taper. PRN medications given on day shift: Reglan, Tylenol, Robaxin, Phenergan, Zofran IM and Vistaril, his last COWS was 15 and CIWA 19 @ 1600. Per report patient continues with N/V especially after eating, asked to refrain from eating heavy food but not being compliant. At this time patient is vomiting and demanding IV fluids or else he will leave and go to a detox that will accommodate him, reassured him that we would re start a PIV catheter and run fluids, patient continues to rant about throwing up for 5 days and not being able to eat or sleep ( he slept for most of the night last night). Zofran 4mg IM given right now, will continue to offer support as needed. Addendum: 03/14/18 at 0036 by ODILIA SANCHEZ RN error- wrong time, should have been 193 NOT 1251
--- NOTE | 2018-03-13 07:48 | NUR ---
Start of Shift Last COWS 13, CIWA 19 at 2000. Pt on modified 5 day Valium taper. Withdrawal symptoms today include nausea, poor appetite, flushed face and chest, gross tremors, sweats, chills, moderate anxiety, headache, light sensitivity, fatigue, generalized discomfort, poor sleep, bad dreams, and restlessness. He presents with flat affect, isolative, anhedonia, dysphoria, and depressed mood. Pt slept 10 hours last night. Pt was able to perform ADLs and showered this morning. Encouraged Pt to participate in group activities, socialize with others and identify positive coping skills to maintain sobriety. Seizure and Fall precautions and all safety measures in place. Side rails up x2. Call light functioning and within reach. All needs attended and met. Will continue to assess for withdrawal symptoms.
[2018-03-13 08:07] VITALS: BP 119/66
--- NOTE | 2018-03-13 08:08 | NUR ---
COWS 13, CIWA 17- Pt presents with , flushed face and chest, gross tremors, sweats, chills, moderate anxiety, light sensitivity, fatigue, generalized discomfort, and restlessness. He has flat affect, anhedonia, dysphoria, and depressed mood. Will follow taper protocol and PRN medication as ordered.
[2018-03-13] MEDS: FLUOXETINE HCL 20 MG CAPSULE PO SCH (09:00)
[2018-03-13] MEDS ORDERED: DIAZEPAM 5 MG TABLET PO SCH ×2 (09:00)
[2018-03-13] MEDS: MULTIVITAMINS,THERAPEUTIC TABLET PO SCH (09:19)
[2018-03-13] MEDS: FOLIC ACID 1 MG TABLET PO SCH (09:19)
[2018-03-13] MEDS: DIAZEPAM 5 MG TABLET PO SCH ×2 (09:20→20:37)
[2018-03-13] MEDS: ACETAMINOPHEN 325 MG TABLET PO PRN (09:20)
[2018-03-13] MEDS: AMLODIPINE 10 MG TABLET PO SCH (09:20)
[2018-03-13] MEDS: CARVEDILOL 25 MG TABLET PO SCH ×2 (09:21→20:45)
[2018-03-13] MEDS: METOCLOPRAMIDE HCL 10 MG TABLET PO PRN ×2 (09:21→19:23)
[2018-03-13] MEDS: THIAMINE HCL 100 MG TABLET PO SCH (09:21)
[2018-03-13] MEDS: GABAPENTIN 300 MG CAPSULE PO SCH ×3 (09:21→20:37)
[2018-03-13] MEDS: ONDANSETRON 4 MG/2 ML VIAL IM PRN ×2 (09:30→19:23)
--- NOTE | 2018-03-13 09:30 | NUR ---
PRN Zofran 4 mg IM for vomiting/ Pt reports he vomited one hour ago after eating breakfast and smoking. Pt pale and continues to have nausea. PRN Reglan 10 mg PO for nausea PRN Tylenol 650 mg for left foot pain #5/10 PRN Robaxin 750 mg PO for generalized body aches.
--- NOTE | 2018-03-13 09:31 | NUR ---
Behavioral Note; Pt is emotionally volatile, agitated, dysphoria, and moderately anxious. Pt had recent episode of emesis after smoking, didn't want to tell staff because he wants to go home today. Nurse explained to Pt sometimes smoking can exacerbate nausea and cause vomiting. Pt threw his pack of cigarettes on the floor. "You can take these! You can't bicycle inspector me for smoking. I just want to go home. I feel terrible, I can have 100 [place] delivered to my house and take them to feel better." Educated Pt on medication regimen and taper protocol during the detox process. Encouraged him to eat bland foods and try not to smoke until nausea and vomiting resolve. Notified MD, Case Management and charge nurse his continued nausea/vomiting and wishes to be discharged today.
--- NOTE | 2018-03-13 10:00 | NUR ---
Reassess Zofran- Pt reports nausea improved. no more emesis episodes.
--- NOTE | 2018-03-13 10:26 | NUR ---
Reassess Reglan- Pt reports nausea improved. Reassess Tylenol- Pt reports left foot pain better, now #3/10. Reassess Robaxin- pt reports body aches improved. All medications effective.
[2018-03-13 12:00] VITALS: BP 137/89
--- NOTE | 2018-03-13 12:08 | NUR ---
COWS 15, CIWA 19- Pt continues to have nausea, vomiting, moderate anxiety, flushed face, bilateral hand tremors, sweats, chills, fatigue, generalized discomfort, and restlessness. He is labile, irritable, has difficulty concentrating, and disorganized. Pt requests to go home today; then 15 minutes later requests to stay longer and go home Wednesday or Wednesday. MD and geriatric case manager notified. Will follow taper protocol and PRN medication as ordered.
[2018-03-13] MEDS: PROMETHAZINE HCL 25 MG TABLET PO PRN (13:09)
[2018-03-13] MEDS: KETOROLAC TROMETHAMINE 30 MG INJ IM PRN ×2 (13:09→20:37)
--- NOTE | 2018-03-13 13:13 | NUR ---
PRN Toradol 30 mg IM for left foot pain #8/10 and back pain #6/10, PRN Phenergan 25 mg PO for nausea PRN Vistaril 50 mg PO for moderate anxiety and agitation.
[2018-03-13] MEDS ORDERED: DIAZEPAM 5 MG TABLET PO ONE (14:00)
--- NOTE | 2018-03-13 14:10 | NUR ---
Reassess Toradol- Pt reports left foot pain now #5/10. Back pain now #3/10 Reassess Vistaril- Pt remains anxious, administered one time dose of Valium 5 mg PO Reassess Phenergan- Pt nausea improved, he was able to eat lunch. will reassess again to make sure he doesn't vomit again.
[2018-03-13 16:00] VITALS: BP_SYST 130; BP_SYST 146; BP_DIAS 105; BP_DIAS 83
--- NOTE | 2018-03-13 16:21 | NUR ---
COWS 15, CIWA 19- Pt continues to have moderate anxiety, flushed face, bilateral hand tremors, malaise,generalized discomfort, and restlessness. He is labile, irritable, has difficulty concentrating, and disorganized. He was disappointed he slept through the afternoon therapy session. Encouraged Pt to share feelings and support him. Continue with taper protocol and PRN medications as ordered.
--- NOTE | 2018-03-13 18:33 | NUR ---
End of Shift Last COWS 15, CIWA 19 at 1600. Pt on modified 5 day Valium taper. Withdrawal symptoms today include nausea, vomiting, moderate anxiety, restlessness, bilateral hand tremors, sweats, headache, fatigue, generalized discomfort. Pt is labile, emotional (upset and tearful), and has depress mood. He is irritable and very disorganized. Room is cluttered with wrappers, empty water bottles, clothes and used linens. Drinks and food spilled on floor, in his bed and on his tray. PRN given today; Reglan, Tylenol, Robaxin, Zofran, Phenergan, Toradol, and Vistaril. Encouraged Pt to participate in group activities, socialize with others and identify positive coping skills to maintain sobriety. Pt did participate in one group therapy sessions today. He was disappointed he slept through the afternoon session. PO fluids 1500 ml, voids x3, BM x1. Seizure and Fall precautions and all safety measures in place. Side rails up x2. Call light functioning and within reach. All needs attended and met. Will continue to assess for withdrawal symptoms. Endorsed to PM shift.
--- NOTE | 2018-03-13 19:23 | NUR ---
PRN Zofran Zofran 4mg IM given in L deltoid for continuous emesis for 20 mins
--- NOTE | 2018-03-13 19:30 | NUR ---
Start of Shift Patient is a 52 yr old male who was admitted to [facility] on 03/09/18 for a medically supervised withdrawal from ETOH and Opiates ( [place]), he continues on a Valium taper. PRN medications given on day shift: Reglan, Tylenol, Robaxin, Phenergan, Zofran IM and Vistaril, his last COWS was 15 and CIWA 19 @ 1600. Per report patient continues with N/V especially after eating, asked to refrain from eating heavy food but not being compliant. At this time patient is vomiting and demanding IV fluids or else he will leave and go to a detox that will accommodate him, reassured him that we would re start a PIV catheter and run fluids, patient continues to rant about throwing up for 5 days and not being able to eat or sleep ( he slept for most of the night last night). Zofran 4mg IM given right now, will continue to offer support as needed.
[2018-03-13] MEDS ORDERED: IV NS 1000 ML 1,000 ML IV PRN (19:45)
[2018-03-13 20:00] VITALS: BP 132/77
--- NOTE | 2018-03-13 20:00 | NUR ---
COWS 17 CIWA 23 patient presents with constant N/V, dry heaves, body aches, dry mouth, agitation, gross hand tremors and increased anxiety. Scheduled Valium given
--- NOTE | 2018-03-13 20:23 | NUR ---
PRN Zofran Reassess Zofran not effective, patient still vomiting clear liquid, will give IV compazine next
--- NOTE | 2018-03-13 20:30 | NUR ---
IV Restart Patient with constant N/V , IV restarted in RUE 22G 1000ml NS ^ @ 125/hr
[2018-03-13] MEDS: PROCHLORPERAZINE EDISYLATE 10 MG/2 ML VIAL IV PRN (20:37)
--- NOTE | 2018-03-13 20:37 | NUR ---
PRN Toradol / Compazine Toradol 30mg IM given for L foot heel fx pain 03/21 Compazine 10mg IVP over 4 mins given for constant emesis and dry heaves will reassess
--- NOTE | 2018-03-13 21:37 | NUR ---
PRN Reassess Patient is asleep in bed at this time, no N/V at this time, will continue to monitor
--- NOTE | 2018-03-14 | NUR ---
VS/ CIWA Deferred Patient is sound asleep after vomiting for hours, requests not to be woken up through the night. Breathing even and unlabored RR 14, IV fluids NS running at 125cc/hr RUE, call light within reach
--- NOTE | 2018-03-14 04:00 | NUR ---
COWS/CIWA/VITALS deferred per patients request to be able to sleep uninterrupted.
[2018-03-14] MEDS: HYDROXYZINE PAMOATE 25 MG CAPSULE PO PRN ×2 (05:43→15:23)
--- NOTE | 2018-03-14 05:45 | NUR ---
PRN Clonidine 0.1mg PO given for anxiety/agitation and chills Vistaril 50mg PO given for anxiety
[2018-03-14] MEDS: CLONIDINE HCL 0.1 MG TABLET PO PRN ×2 (05:46→15:23)
[2018-03-14 05:55] VITALS: BP 147/87
--- NOTE | 2018-03-14 06:45 | NUR ---
PRN Reassess Patient has fallen back asleep, breathing even and unlabored
--- NOTE | 2018-03-14 06:49 | NUR ---
End of Shift : Patient is a 52 yr old male who was admitted to [facility] on 03/09/18 for a medically supervised withdrawal from ETOH and Opiates, he has completed a 5 day Valium taper. Patient has recurring N/V , PIV inserted at 2030 in RUE 22G, he had 1 L of NS run during the night. He had a PO fluid intake of 400 ML, IV 1000ML, 3 Voids and 0 BM, last COWS 17 and CIWA 23 @ 8pm, he slept for 9 hours. Withdrawal symptoms include: N/V, dry heaves, shaking, diaphoresis, bilateral hand tremors, thirst, dry mouth and lethargy. PRN medications given on PM shift: Zofran IM, Toradol IM, Compazine IVP, Vistaril and Clonidine and 1L Normal Saline. Continue to follow MD plan of care and offer support as needed. Endorsed to day shift.
--- NOTE | 2018-03-14 07:30 | NUR ---
start of shift note: received pt from night custodian nurse, pt is in bed with IV fluids currently running, IV site intact and patent. pt is sleeping at this time. no s/s of nausea and vomiting. pt's current cows 17 and ciwa 23. will continue to monitor pt for any changes. and continue to meet pts needs. will encourage pt have an increase in fluid intake.
[2018-03-14] MEDS: FLUOXETINE HCL 20 MG CAPSULE PO SCH (08:24)
[2018-03-14] MEDS: GABAPENTIN 300 MG CAPSULE PO SCH ×3 (08:24→20:03)
[2018-03-14] MEDS: THIAMINE HCL 100 MG TABLET PO SCH (08:24)
[2018-03-14] MEDS: FOLIC ACID 1 MG TABLET PO SCH (08:24)
[2018-03-14] MEDS: CARVEDILOL 25 MG TABLET PO SCH ×2 (08:24→20:05)
[2018-03-14] MEDS: AMLODIPINE 10 MG TABLET PO SCH (08:24)
[2018-03-14] MEDS: MULTIVITAMINS,THERAPEUTIC TABLET PO SCH (08:24)
[2018-03-14 09:00] VITALS: BP 130/70
--- NOTE | 2018-03-14 09:00 | NUR ---
Pt was woken up and prompted to speak with discharge pt became agitated and verbalized " they're kicking me out" I'm sick. pt verbalized why does discharge have to talk to me now, if Im discharging tomorrow. you guys are horrible and I just want to leave.
--- NOTE | 2018-03-14 11:00 | NUR ---
Nursing Note Pt requested IV to be removed. Okay per Dr. Hinton to d/c IV site. No redness, drainage, or swelling noted.
[2018-03-14] MEDS ORDERED: CLON0.1T14 PO (11:09)
[2018-03-14] MEDS ORDERED: DIPH50CA37 PO (11:09)
[2018-03-14] MEDS ORDERED: IBUP-1955 PO (11:09)
[2018-03-14 12:00] VITALS: BP 142/87
--- NOTE | 2018-03-14 12:40 | NUR ---
Therapist prompted client to attend group therapy sessions.
--- NOTE | 2018-03-14 15:23 | NUR ---
PRN administration: pt was extremely agitated with phone call situation and discharge plans. Pt started getting verbally aggressive towards staff and Administration, pt is flushed, agitated and angry at times threatening staff. pt is passive agressive using words like you dont care about me because Im leaving tomorrow or i Dont need anything or any meds because it wont help me anyways. Pt with threats of leaving AMA. administered clonidine and Vistaril. will re-assess effectiveness of medication
--- NOTE | 2018-03-14 16:23 | NUR ---
[id number]: pt verbalized he apologizes for his actions earlier and is more calm, he verbalized whatever you gave me worked.
[2018-03-14] MEDS: KETOROLAC TROMETHAMINE 30 MG INJ IM PRN (16:48)
--- NOTE | 2018-03-14 16:48 | NUR ---
PRN administration: pt with complaints of pain on foot and back, pain scale 8/10.. will administer toradol and monitor effectiveness of medication
--- NOTE | 2018-03-14 17:18 | NUR ---
pre-assessment for toradol: pt verbalized pain is still there related to the fracture, but is better pain scale is now 3/10. but pt verbalizes tylenol does not help so Im ok for now thanks.
[2018-03-14 17:52] VITALS: BP 124/81
--- NOTE | 2018-03-14 19:00 | NUR ---
end of shift note: pt is very labile, agitated pt is without moderate withdrawal symptoms. pt is irritable, anxious, and angry. last noted ciwa 10 and cows 8. pt had to be re-directed multiple times and comply with unit rules and protocols. pt will discharge tomorrow will endorse pt to operations supervisor 2nd shift nurse.
--- NOTE | 2018-03-14 19:30 | NUR ---
START OF SHIFT Received 52 year old male patient admitted on 03/09/18 for ETOH and Opiate withdrawal. Pt is alert and oriented x4. Pt noted with agitation, irritability, anxiety, restlessness, nausea, abdominal cramps, and back pain 02/18. Pt is scheduled to be DC tomorrow to Home. Per endorsement, IV was discontinued. Pt received PRN Vistaril, Clonidine and Toradol at 1700. Last COWS:11, CIWA: 19 at 1600. Breathing is even and unlabored, safety measures in place. Will monitor.
[2018-03-14 20:00] VITALS: BP 124/80
[2018-03-14] MEDS: ONDANSETRON 4 MG/2 ML VIAL IM PRN (20:00)
--- NOTE | 2018-03-14 20:00 | NUR ---
COWS/CIWA Pt noted with agitation, irritability, flushed face, nausea/vomiting x1, abdominal cramps, and back pain 02/18. COWS: 11, CIWA:19 prior to 2100 medication administration. Will continue to monitor.
[2018-03-14] MEDS: METHOCARBAMOL 750 MG TABLET PO PRN (20:03)
--- NOTE | 2018-03-14 20:03 | NUR ---
PRN ZOFRAN IM/TRAZODONE/ROBAXIN Pt complains of nausea and vomiting x1, difficulty sleeping and muscle spasms. PRN Zofran IM, Trazodone and Robaxin administered as ordered. Safety measures in place. Will monitor effectiveness.
[2018-03-14] MEDS: TRAZODONE 50 MG TABLET PO PRN (20:04)
--- NOTE | 2018-03-14 20:33 | NUR ---
PRN ZOFRAN IM REASSESSMENT PRN medication effective. Pt denies nausea/vomiting and reports he feels " a little better". Will continue to monitor.
--- NOTE | 2018-03-14 21:03 | NUR ---
PRN ROBAXIN/TRAZODONE REASSESSMENT PRN Robaxin effective. Pt reports decrease in back pain 11/18. Trazodone ineffective. Pt still awake and reports he will sleep soon. Breathing even and unlabored, safety measures in place. Will monitor.
--- NOTE | 2018-03-15 | NUR ---
VITALS REFUSED, COWS/CIWA DEFERRED 0000 vitals refused. COWS/CIWA deferred d/t pt lying in bed with eyes closed noted to be asleep. Breathing is even and unlabored, safety measures in place. Will monitor.
--- NOTE | 2018-03-15 04:00 | NUR ---
VITALS REFUSED, COWS/CIWA DEFERRED 0400 vitals refused. COWS/CIWA deferred d/t pt lying in bed with eyes closed noted to be asleep. Breathing is even and unlabored, safety measures in place. Will monitor.
[2018-03-15] MEDS: KETOROLAC TROMETHAMINE 30 MG INJ IM PRN (05:17)
[2018-03-15 05:18] VITALS: BP 135/85
--- NOTE | 2018-03-15 05:18 | NUR ---
PRN TORADOL Pt complains of left foot pain 02/18. PRN Toradol administered as ordered. Will monitor effectiveness.
--- NOTE | 2018-03-15 05:18 | NUR ---
COWS/CIWA Pt complains of abdominal cramps, left foot pain 8/10, anxiety, restlessness and agitation. COWS:8, CIWA:13. Will monitor.
--- NOTE | 2018-03-15 05:40 | NUR ---
PRN TORADOL REASSESSMENT PRN medication effective. Pt reports decrease in pain 5/10. Breathing even and unlabored, safety measures in place. Will monitor.
--- NOTE | 2018-03-15 07:06 | NUR ---
END OF SHIFT Pt is a 52 year old male patient admitted on 03/09/18 for ETOH and Opiate withdrawal. Pt remains alert and oriented x4. He was noted with agitation, irritability, anxiety, restlessness, nausea, abdominal cramps, and back pain 02/18 during the shift. He is scheduled to be DC today to Home. At 1999 he received PRN Zofran IM, Trazodone, and Robaxin. At 517 he received PRN Toradol. He slept a total of 7 hrs, Intake: 1,000mL, Void: x1, BM:0, Emesis: x1. Last COWS:8, CIWA: 13 at 0518. Breathing is even and unlabored, safety measures in place. Endorsed to AM shift.
--- NOTE | 2018-03-15 07:45 | NUR ---
Start Of Shift Pt is a 52 y/o M admitted on 03/09/18 for ETOH withdrawal and opiate withdrawal. Pt has completed a modified valium taper and is medically cleared to be discharged today. Received pt laying in bed with boot on l foot d/t fx of the heel. Pt presents anxiety, agitation, restlessness, no appetite, back pain 4/10, and abdominal cramps. Pt states he is ready to be discharged however feels very anxious about leaving detox. Last COWS 8 and CIWA 13 , pt slept 7 hrs. Zofran and toradol IM prns given last night. Side rails upx2, bed in lowest position. Call light is within reach. Safety measures in place. Will continue to monitor. Addendum: 03/15/18 at 0959 by JOSE CARLOS AGUILERA RN COWS 6 and CIWA 8
[2018-03-15 08:00] VITALS: BP 134/90
[2018-03-15] MEDS: MULTIVITAMINS,THERAPEUTIC TABLET PO SCH (08:20)
[2018-03-15] MEDS: FLUOXETINE HCL 20 MG CAPSULE PO SCH (08:20)
[2018-03-15] MEDS: GABAPENTIN 300 MG CAPSULE PO SCH (08:20)
[2018-03-15] MEDS: METHOCARBAMOL 750 MG TABLET PO PRN (08:21)
[2018-03-15] MEDS: CLONIDINE HCL 0.1 MG TABLET PO PRN (08:21)
[2018-03-15] MEDS: FOLIC ACID 1 MG TABLET PO SCH (08:21)
--- NOTE | 2018-03-15 08:21 | NUR ---
PRN Clonidine 0.1 mg po prn given for increased anxiety 01/18. Pt states he is feeling very scared and anxious about leaving detox. Will monitor and reassess.
[2018-03-15 08:22] VITALS: BP 134/90
[2018-03-15] MEDS: THIAMINE HCL 100 MG TABLET PO SCH (08:22)
[2018-03-15] MEDS: CARVEDILOL 25 MG TABLET PO SCH (08:22)
[2018-03-15] MEDS: AMLODIPINE 10 MG TABLET PO SCH (08:22)
--- NOTE | 2018-03-15 09:21 | NUR ---
Reassessment Pt verbalized medication had decreased his anxiety and is ready to be discharged.
--- NOTE | 2018-03-15 09:40 | NUR ---
Discharge Note Pt is in stable condition, VS are wnl. Pt has been given d/c instructions and verbalized understanding. Last COWS 6 and CIWA 8. Pt has left the building with all belongings, valuables, prescriptions and d/c paperwork at 0940 today 03/15/18. notified of pt d/c.
== END 2018-03-15 09:40 | disposition home or self-care (01) | DRG 895 ==
LOC: SRC 12:33
PROVIDERS: ADMIT Family Medicine Addiction Medicine; ATTEND Family Medicine Addiction Medicine
DX: F10.230 Alcohol dependence with withdrawal, uncomplicated (principal); F33.1 Major depressive disorder, recurrent, moderate; F11.23 Opioid dependence with withdrawal; Y90.9 Presence of alcohol in blood, level not specified; S92.002D Unspecified fracture of left calcaneus, subsequent encounter for fracture with routine healing; X58.XXXD Exposure to other specified factors, subsequent encounter; K21.9 Gastro-esophageal reflux disease without esophagitis; Z81.1 Family history of alcohol abuse and dependence; F17.210 Nicotine dependence, cigarettes, uncomplicated; F41.9 Anxiety disorder, unspecified; G89.29 Other chronic pain; G47.00 Insomnia, unspecified; I10 Essential (primary) hypertension
CPT/HCPCS: 36415; 70030-TC; 80307; 80361; 83690; 83735; 85025; 86592; 86705; 86803; 87340; 87806; A4663; G0480; J0780; J1885; J2405; J3411; J3480; J7030; Q0162; Q0169